=== PATIENT | female | born 1975 | race Caucasian/White ===

== ENCOUNTER → 2016-09-03 | Outpatient (CLI) | payer OTHER ==
--- NOTE | 2016-09-03 09:53 | REP ---
RIGHT UPPER QUADRANT ULTRASOUND: Real-time sonographic evaluation of the right upper quadrant performed and compared to a prior study of 07/29/2014. Once again, there is 4 mm polyp in the gallbladder without gallstones or gallbladder wall thickening. There is no free fluid. There is no intrahepatic or extrahepatic biliary dilatation, common bile duct measuring 6 mm in diameter. The liver again demonstrates a hyperechoic nodule in the right lobe, which is unchanged measuring 2.7 x 3.3 x 2.3 cm. The pancreas is homogeneous and appears grossly unremarkable. Right kidney demonstrates no hydronephrosis or nephrolithiasis with normal size at 10.6 cm in length. IMPRESSION: Stable exam as above. Signed by Elder Lin MD 09/03/2016 01:23 P
== END ==
LOC: M RAD 07:44
PROVIDERS: ATTEND Family Medicine
DX: Q44.5 Other congenital malformations of bile ducts (principal); K76.89 Other specified diseases of liver

== ENCOUNTER → 2016-09-29 | Outpatient (CLI) | payer OTHER ==
[2016-09-29 10:01] LABS: BASO % 0.8 % (0.0-1.0); EOS # 0.2 K/mm3 (0.0-0.50); EOS % 4.4 % (0.0-3.0); LYMPH # 1.3 K/mm3 (1.5-4.5); MEAN CORPUSCULAR HEMOGLOBIN 31.4 pg (27.0-33.0); MEAN CORPUSCULAR HGB CONC 34.1 g/dl (32.0-36.5); MEAN CORPUSCULAR VOLUME 92.1 fl (80.0-96.0); MONO # 0.1 K/mm3 (0.0-0.8); MONO % 3.5 % (0.0-5.0); NEUTROPHILS % 56.5 % (36.0-66.0); RED CELL DISTRIBUTION WIDTH 12.6 % (11.5-14.5); WHITE BLOOD COUNT 3.6 K/mm3 (4.0-10.0)
[2016-09-29 10:34] LABS: ALBUMIN 3.4 GM/DL (3.2-5.2); ALKALINE PHOSPHATASE 66 U/L (45-117); ALT/SGPT 15 U/L (12-78); ANION GAP 8 MEQ/L (8-16); AST/SGOT 13 U/L (15-37); BILIRUBIN,TOTAL 0.6 MG/DL (0.2-1.0); BLOOD UREA NITROGEN 12 MG/DL (7-18); CALCIUM LEVEL 8.4 MG/DL (8.5-10.1); CARBON DIOXIDE LEVEL 28 MEQ/L (21-32); CHLORIDE LEVEL 106 MEQ/L (98-107); CHOLESTEROL LEVEL 163 MG/DL (<200); CREATININE FOR GFR 0.73 MG/DL (0.55-1.02); FREE T4 1.02 NG/DL (0.76-1.46); GLOMERULAR FILTRATION RATE > 60.0 (>60); GLUCOSE, FASTING 92 MG/DL (70-105); SODIUM LEVEL 142 MEQ/L (136-145); TOTAL PROTEIN 6.5 GM/DL (6.4-8.2); TRIGLYCERIDES LEVEL 82 MG/DL (<150)
== END ==
LOC: M LAB 09:23
PROVIDERS: ATTEND Family Medicine
DX: Z00.00 Encounter for general adult medical examination without abnormal findings (principal)

== ENCOUNTER → 2017-04-22 | Outpatient (CLI) | payer OTHER ==
[~2017-04-22] MED LIST: GASTROGRAFIN SOLUTION 30ML (Q9963) As Ordered ONE; ISOVUE-370 76% 100ML VIAL (Q9967) As Ordered ONE
--- NOTE | 2017-04-22 15:17 | REP ---
CT ABDOMEN PELVIS WITH ORAL CONTRAST ONLY: 04/22/2017 COMPARISON: CT abdomen 08/03/2013, CT abdomen and pelvis, 11/07/2012. TECHNIQUE: Oral Gastrografin mixture 10 mL in 290 mL flavored water for two doses per our bowel contrast protocol. Coronal and sagittal reconstructions were provided. No IV contrast was provided because of inability to obtain IV access. FINDINGS: CT ABDOMEN: Lung bases are clear. Heart is not enlarged. There is no pericardial thickening or effusion. The liver, spleen, gallbladder, pancreas, adrenal glands, kidneys, and the small bowel loops are all unremarkable. Colon shows oral contrast extending to the proximal left colon. No sign of colitis, diverticulitis, stricture, or mass. No obstruction. Bowel loops fluid filled and contrast filled but without mass, wall thickening, or edema. The aorta without aneurysm. No periaortic or other retroperitoneal/mesenteric pathologic-sized lymphadenopathy. No hydronephrosis, hydroureter, ureteral stone, renal stone, or mass. Lung window review of all CT slices shows no perforation or abscess. Bone windows show lumbar and lower thoracic vertebral bodies, their posterior elements, and the visualized ribs intact. CT PELVIS: The pelvis, hips, SI joints, sacrum, symphysis pubis and pubic rami are normal. The bladder only minimally filled but without stone, mass, or wall thickening. Uterus anteverted, not enlarged. No adnexal mass or pelvic free fluid. No pelvic lymphadenopathy. Small bowel loops in the deep pelvis unremarkable to the ileocecal valve. Appendix is seen and appears grossly normal. No adnexal mass. A few small follicles evident. There is no ventral or inguinal hernia nor inguinal pathologic-sized adenopathy. No pelvic free fluid. IMPRESSION: 1. No CT evidence of mass, colitis, diverticulitis, ascites, adenopathy or other acute finding. 2. Uterus anteverted, not enlarged. Appendix unremarkable. 3. No adnexal mass, ventral or inguinal hernia, nor pathologic sized inguinal adenopathy. 4. Upper abdomen unremarkable. Signed by Karel Moncada MD 04/22/2017 05:48 P
== END ==
LOC: M RAD 11:50
PROVIDERS: ATTEND Physician Assistant
DX: R10.30 Lower abdominal pain, unspecified (principal); R19.7 Diarrhea, unspecified; K59.00 Constipation, unspecified
CPT/HCPCS: 74176; Q9963

== ENCOUNTER → 2017-05-04 | Outpatient (CLI) | payer OTHER ==
[2017-05-04 11:53] LABS: BASO % 0.8 % (0.0-1.0); EOS # 0.1 10^3/uL (0.0-0.50); EOS % 3.4 % (0.0-3.0); IMMATURE GRANULOCYTE % 0.3 % (0-0); LYMPH # 1.3 10^3/uL (1.5-4.5); LYMPH % 33.2 % (24.0-44.0); MEAN CORPUSCULAR HEMOGLOBIN 31.5 pg (27.0-33.0); MEAN CORPUSCULAR HGB CONC 33.3 g/dl (32.0-36.5); MEAN CORPUSCULAR VOLUME 94.4 fl (80.0-96.0); MONO # 0.2 10^3/uL (0.0-0.8); MONO % 5.3 % (0.0-5.0); NEUTROPHILS # 2.2 10^3/uL (1.8-7.7); PLATELET COUNT, AUTOMATED 233 10^3/uL (150-450); RED CELL DISTRIBUTION WIDTH 13.1 % (11.5-14.5); WHITE BLOOD COUNT 3.8 10^3/uL (4.0-10.0)
[2017-05-04 12:50] LABS: FREE T4 1.14 NG/DL (0.76-1.46)
== END ==
LOC: M LAB 11:17
PROVIDERS: ATTEND Physician Assistant
DX: A04.8 Other specified bacterial intestinal infections (principal); E07.89 Other specified disorders of thyroid

== ENCOUNTER → 2017-05-19 | Outpatient (CLI) | payer OTHER ==
[2017-05-19 09:11] LABS: BASO % 1.3 % (0.0-1.0); EOS # 0.1 10^3/uL (0.0-0.50); EOS % 2.8 % (0.0-3.0); IMMATURE GRANULOCYTE % 0.3 % (0-0); LYMPH # 1.1 10^3/uL (1.5-4.5); LYMPH % 34.2 % (24.0-44.0); MEAN CORPUSCULAR HEMOGLOBIN 31.5 pg (27.0-33.0); MEAN CORPUSCULAR HGB CONC 33.7 g/dl (32.0-36.5); MEAN CORPUSCULAR VOLUME 93.5 fl (80.0-96.0); MONO # 0.2 10^3/uL (0.0-0.8); MONO % 6.3 % (0.0-5.0); NEUTROPHILS # 1.8 10^3/uL (1.8-7.7); NEUTROPHILS % 55.1 % (36.0-66.0); PLATELET COUNT, AUTOMATED 227 10^3/uL (150-450); RED CELL DISTRIBUTION WIDTH 12.8 % (11.5-14.5); WHITE BLOOD COUNT 3.2 10^3/uL (4.0-10.0)
== END ==
LOC: M LAB 08:26
PROVIDERS: ATTEND Physician Assistant
DX: A04.72 Enterocolitis due to Clostridium difficile, not specified as recurrent (principal)

== ENCOUNTER → 2017-05-23 | Outpatient (REF) | payer OTHER | LOC: M SFHCLERA 20:55 | PROVIDERS: ATTEND Nurse Practitioner Family | DX: J02.9 Acute pharyngitis, unspecified (principal) ==

== ENCOUNTER → 2017-06-30 | Outpatient (REF) | payer OTHER ==
[2017-06-30 14:45] LABS: REASON FOR REVIEW COMPREHENSIVE REVIEW; SLIDE REVIEW Report; SOURCE PERIPHERAL SMEAR
[2017-07-01 09:46] LABS: HEPATITIS B SURFACE ANTIGEN NEGATIVE (NEGATIVE)
[2017-07-01 09:54] LABS: HEPATITIS B SURFACE ANTIBODY NEGATIVE (POSITIVE)
[2017-07-01 10:11] LABS: HEPATITIS C VIRUS ABY INDEX 0.1 INDEX (<0.8)
[2017-07-01 13:58] LABS: HIV 1&2 SCREEN CENTAUR NEGATIVE (NEGATIVE)
== END ==
LOC: M LAB REF 14:05
DX: D72.819 Decreased white blood cell count, unspecified (principal)

== ENCOUNTER → 2017-09-09 | Outpatient (CLI) | payer OTHER ==
[2017-09-09 10:12] LABS: BASO % 0.6 % (0.0-1.0); EOS # 0.1 10^3/uL (0.0-0.50); EOS % 3.1 % (0.0-3.0); IMMATURE GRANULOCYTE % 0.3 % (0-3.0); LYMPH # 1.1 10^3/uL (1.5-4.5); LYMPH % 34.8 % (24.0-44.0); MONO # 0.1 10^3/uL (0.0-0.8); MONO % 3.7 % (0.0-5.0); NEUTROPHILS # 1.9 10^3/uL (1.8-7.7); NEUTROPHILS % 57.5 % (36.0-66.0)
[2017-09-09 10:20] LABS: APPEARANCE, URINE CLEAR (CLEAR); BACTERIA, URINE AUTO NEGATIVE (NEGATIVE); BILIRUBIN, URINE AUTO NEGATIVE (NEGATIVE); BLOOD, URINE BLOOD 1+ (NEGATIVE); COLOR, URINE YELLOW (YELLOW); GLUCOSE, URINE (UA) AUTO NEGATIVE (NEGATIVE); KETONE, URINE AUTO NEGATIVE (NEGATIVE); LEUKOCYTE ESTERASE, URINE AUTO NEGATIVE (NEGATIVE); MUCUS, URINE SMALL (NEGATIVE); NITRITE, URINE AUTO NEGATIVE (NEGATIVE); PROTEIN, URINE AUTO NEGATIVE (NEGATIVE); RBC, URINE AUTO 1 /HPF (0-3); SPECIFIC GRAVITY URINE AUTO 1.023 (1.002-1.035); SQUAMOUS EPITHELIAL CELL UR AU 1 /HPF (0-6); UROBILINOGEN, URINE AUTO 0.2 mg/dL (0.0-2.0); WBC, URINE AUTO 0 /HPF (0-3)
[2017-09-09 10:30] LABS: ALBUMIN 3.4 GM/DL (3.2-5.2); ALBUMIN/GLOBULIN RATIO 1.03 (1.00-1.93); ALKALINE PHOSPHATASE 47 U/L (45-117); ALT/SGPT 11 U/L (12-78); ANION GAP 5 MEQ/L (8-16); AST/SGOT 10 U/L (7-37); BILIRUBIN,TOTAL 0.5 MG/DL (0.2-1.0); BLOOD UREA NITROGEN 12 MG/DL (7-18); CALCIUM LEVEL 8.3 MG/DL (8.5-10.1); CARBON DIOXIDE LEVEL 27 MEQ/L (21-32); CHLORIDE LEVEL 111 MEQ/L (98-107); CHOLESTEROL LEVEL 152 MG/DL (<200); CHOLESTEROL RISK RATIO 2.814 (<5); CREATININE FOR GFR 0.66 MG/DL (0.55-1.30); FREE T4 1.01 NG/DL (0.76-1.46); GLOMERULAR FILTRATION RATE > 60.0 (>58); GLUCOSE, FASTING 86 MG/DL (70-100); HDL CHOLESTEROL 54 MG/DL (>40); NON-HDL-C 98 MG/DL; POTASSIUM SERUM 4.3 MEQ/L (3.5-5.1); SODIUM LEVEL 143 MEQ/L (136-145); THYROID STIMULATING HORMONE 0.735 uIU/ML (0.358-3.740); TOTAL PROTEIN 6.7 GM/DL (6.4-8.2); TRIGLYCERIDES LEVEL 60 MG/DL (<150)
[2017-09-09 10:54] LABS: RED BLOOD COUNT 4.18 10^6/uL (4.00-5.40); WHITE BLOOD COUNT 3.2 10^3/uL (4.0-10.0)
[2017-09-09 10:55] LABS: HEMATOCRIT 39.1 % (36.0-47.0); HEMOGLOBIN 13.2 g/dl (12.0-15.5); MEAN CORPUSCULAR HEMOGLOBIN 31.6 pg (27.0-33.0); MEAN CORPUSCULAR HGB CONC 33.8 g/dl (32.0-36.5); MEAN CORPUSCULAR VOLUME 93.5 fl (80.0-96.0); PLATELET COUNT, AUTOMATED 212 10^3/uL (150-450); RED CELL DISTRIBUTION WIDTH 12.7 % (11.5-14.5)
== END ==
LOC: M LAB 09:14
DX: D72.819 Decreased white blood cell count, unspecified (principal); R00.2 Palpitations; R10.30 Lower abdominal pain, unspecified; E78.5 Hyperlipidemia, unspecified
CPT/HCPCS: 84443

== ENCOUNTER → 2018-08-27 | Outpatient (REF) | payer OTHER ==
[~2018-08-27] MED LIST changes: +EXCETAB80 PO; -GASTROGRAFIN SOLUTION 30ML (Q9963) As Ordered ONE; +IBUP-1022 PO; +IBUP80TA PO; -ISOVUE-370 76% 100ML VIAL (Q9967) As Ordered ONE; +LOW-1TAB2; +MUCI30TA5 PO; +OSEL75CA PO; +[UNRECOGNIZED DRUG - CODE] PO
== END ==
LOC: M SFHCLERA 11:51
PROVIDERS: ATTEND Nurse Practitioner Family
DX: Z20.828 Contact with and (suspected) exposure to other viral communicable diseases (principal)

== ENCOUNTER 2018-08-28 15:09 | Emergency (ER) | payer OTHER ==
[~2018-08-28] VITALS: Ht 157.5 cm; Wt 65.8 kg
[2018-08-28] MEDS ORDERED: LOW-1TAB2 (15:19)
[2018-08-28] MEDS ORDERED: MUCI30TA5 PO (15:19)
[2018-08-28] MEDS ORDERED: [UNRECOGNIZED DRUG - CODE] PO (15:19)
[2018-08-28] MEDS ORDERED: IBUP80TA PO (15:19)
[2018-08-28] MEDS ORDERED: EXCETAB80 PO (15:19)
[2018-08-28 16:05] LABS: BASO % 0.9 % (0.0-1.0); EOS # 0.1 10^3/uL (0.0-0.50); EOS % 2.8 % (0.0-3.0); HEMATOCRIT 42.7 % (36.0-47.0); HEMOGLOBIN 14.4 g/dl (12.0-15.5); LYMPH # 0.8 10^3/uL (1.5-4.5); LYMPH % 24.6 % (24.0-44.0); MEAN CORPUSCULAR HEMOGLOBIN 31.8 pg (27.0-33.0); MEAN CORPUSCULAR HGB CONC 33.7 g/dl (32.0-36.5); MEAN CORPUSCULAR VOLUME 94.3 fl (80.0-96.0); MONO # 0.3 10^3/uL (0.0-0.8); MONO % 10.7 % (0.0-5.0); NEUTROPHILS # 1.9 10^3/uL (1.8-7.7); PLATELET COUNT, AUTOMATED 176 10^3/uL (150-450); RED BLOOD COUNT 4.53 10^6/uL (4.00-5.40); WHITE BLOOD COUNT 3.2 10^3/uL (4.0-10.0)
[2018-08-28 16:30] LABS: MONO REFLEX EBV COMP NEGATIVE (NEGATIVE)
[2018-08-28 16:37] LABS: INFLUENZA A AMPLIFICATION POSITIVE (NEGATIVE); INFLUENZA B AMPLIFICATION NEGATIVE (NEGATIVE)
[2018-08-28] MEDS ORDERED: IBUP-1022 PO (17:07)
[2018-08-28] MEDS ORDERED: OSEL75CA PO (17:07)
[2018-08-28 17:12] VITALS: BP 145/90
[2018-08-31 00:08] LABS: EBV VIRAL CAPSID AG IgM <36.0 U/mL (0.0-35.9)
== END 2018-08-28 17:14 | disposition home or self-care (01) ==
LOC: M ED 15:09
DX: J09.X2 Influenza due to identified novel influenza A virus with other respiratory manifestations (principal); Z79.3 Long term (current) use of hormonal contraceptives; Z88.0 Allergy status to penicillin; Z88.2 Allergy status to sulfonamides; Z88.8 Allergy status to other drugs, medicaments and biological substances

== ENCOUNTER → 2018-09-16 | Outpatient (CLI) | payer OTHER ==
[2018-09-16 10:45] LABS: APPEARANCE, URINE CLEAR (CLEAR); BACTERIA, URINE AUTO NEGATIVE (NEGATIVE); BILIRUBIN, URINE AUTO NEGATIVE (NEGATIVE); BLOOD, URINE BLOOD 3+ (NEGATIVE); COLOR, URINE STRAW (YELLOW); GLUCOSE, URINE (UA) AUTO NEGATIVE (NEGATIVE); KETONE, URINE AUTO NEGATIVE (NEGATIVE); LEUKOCYTE ESTERASE, URINE AUTO NEGATIVE (NEGATIVE); MUCUS, URINE SMALL (NEGATIVE); NITRITE, URINE AUTO NEGATIVE (NEGATIVE); PROTEIN, URINE AUTO NEGATIVE (NEGATIVE); RBC, URINE AUTO 26 /HPF (0-3); SPECIFIC GRAVITY URINE AUTO 1.009 (1.002-1.035); SQUAMOUS EPITHELIAL CELL UR AU 0 /HPF (0-6); UROBILINOGEN, URINE AUTO 0.2 mg/dL (0.0-2.0); WBC, URINE AUTO 0 /HPF (0-3)
[2018-09-16 10:52] LABS: BASO % 0.7 % (0.0-1.0); EOS # 0.2 10^3/uL (0.0-0.50); EOS % 3.9 % (0.0-3.0); HEMATOCRIT 43.6 % (36.0-47.0); HEMOGLOBIN 14.2 g/dl (12.0-15.5); LYMPH # 1.2 10^3/uL (1.5-4.5); LYMPH % 22.2 % (24.0-44.0); MEAN CORPUSCULAR HEMOGLOBIN 30.9 pg (27.0-33.0); MEAN CORPUSCULAR HGB CONC 32.6 g/dl (32.0-36.5); MEAN CORPUSCULAR VOLUME 94.8 fl (80.0-96.0); MONO # 0.2 10^3/uL (0.0-0.8); MONO % 3.4 % (0.0-5.0); NEUTROPHILS # 3.9 10^3/uL (1.8-7.7); NEUTROPHILS % 69.6 % (36.0-66.0); PLATELET COUNT, AUTOMATED 274 10^3/uL (150-450); WHITE BLOOD COUNT 5.6 10^3/uL (4.0-10.0)
[2018-09-16 13:34] LABS: BLOOD UREA NITROGEN 11 MG/DL (7-18); CALCIUM LEVEL 8.7 MG/DL (8.5-10.1); CARBON DIOXIDE LEVEL 27 MEQ/L (21-32); CHLORIDE LEVEL 109 MEQ/L (98-107); CREATININE FOR GFR 0.67 MG/DL (0.55-1.30); GLOMERULAR FILTRATION RATE > 60.0 (>58); GLUCOSE, FASTING 85 MG/DL (70-100); POTASSIUM SERUM 4.4 MEQ/L (3.5-5.1); SODIUM LEVEL 142 MEQ/L (136-145)
[2018-09-16 13:35] LABS: ALT/SGPT 16 U/L (12-78); BILIRUBIN,TOTAL 0.6 MG/DL (0.2-1.0); CHOLESTEROL LEVEL 198 MG/DL (<200); CHOLESTEROL RISK RATIO 3.046 (<5); HDL CHOLESTEROL 65 MG/DL (>40); NON-HDL-C 133 MG/DL; TRIGLYCERIDES LEVEL 52 MG/DL (<150)
[2018-09-16 13:36] LABS: LDL CHOLESTEROL 122.6 MG/DL (<100)
[2018-09-16 13:37] LABS: ALBUMIN 3.5 GM/DL (3.2-5.2); FREE T4 1.08 NG/DL (0.76-1.46); THYROID STIMULATING HORMONE 0.796 uIU/ML (0.358-3.740); TOTAL PROTEIN 6.7 GM/DL (6.4-8.2)
== END ==
LOC: M LAB 09:39
PROVIDERS: ATTEND Family Medicine
DX: D72.819 Decreased white blood cell count, unspecified (principal); R00.2 Palpitations; E78.5 Hyperlipidemia, unspecified

== ENCOUNTER → 2018-09-29 | Outpatient (CLI) | payer OTHER ==
--- NOTE | 2018-09-29 11:50 | REP ---
Cervical spine seven views: There are no comparisons. Vertebral body heights and alignment are normal. There is mild C5-6 degenerative disc disease. The disc spaces are otherwise unremarkable. The facets are normally aligned. The prevertebral soft tissues are unremarkable. There is no listhesis on flexion or extension. The odontoid view is unremarkable. There is no bony foraminal encroachment. Impression: Mild C5-6 degenerative disc disease. Electronically Signed by Elder Johnson MD 09/29/2018 11:41 A
--- NOTE | 2018-09-29 11:51 | REP ---
Thoracic spine three views: Mineralization is normal. Vertebral body heights, interspacing alignment are normal. The pedicles are unremarkable. Impression: Negative thoracic spine. Electronically Signed by Elder Johnson MD 09/29/2018 11:42 A
--- NOTE | 2018-09-29 11:56 | REP ---
Lumbar spine five views: There are no comparisons. Vertebral body heights, interspacing alignment are normal. There is no spondylolysis or spondylolisthesis. There is mild joint space narrowing of the L5 S1 facet articulations. The facet articulations are otherwise unremarkable. Pedicles are unremarkable. Sacroiliac articulations are unremarkable. Impression: Negative lumbar spine except for mild joint space narrowing of the L5 S1 facets. Electronically Signed by Elder Johnson MD 09/29/2018 11:47 A
--- NOTE | 2018-09-29 11:56 | REP ---
Sacrum and coccyx three views: The sacroiliac articulations are not fused. There is no cortical eburnation. The sacroiliac articulations are unremarkable. The sacral ala and foramen are unremarkable. The The coccyx is unremarkable. Impression: Negative plain film study of the sacrum and coccyx. If symptoms persist or worsen, consider follow-up MRI or CT. Electronically Signed by Elder Johnson MD 09/29/2018 11:48 A
== END ==
LOC: M RAD 10:34
PROVIDERS: ATTEND Family Medicine
DX: M50.322 Other cervical disc degeneration at C5-C6 level (principal); M47.817 Spondylosis without myelopathy or radiculopathy, lumbosacral region

== ENCOUNTER → 2018-11-03 | Outpatient (CLI) | payer OTHER ==
--- NOTE | 2018-11-03 10:02 | REP ---
Clinical: Hepatic hemangioma. Technique: Real time samuels scale ultrasound examination using curved array transducer. Comparison: 07/29/2014 Findings: The liver is heterogeneous in echotexture and includes 1.2 cm simple cyst in the right lobe and 2.6 cm stable echogenic area in the inferior portion of the right lobe which likely represents hemangioma and remain stable with prior ultrasound dated 07/29/[address] dated 11/07/2012. Pancreas is normal in appearance and echotexture. The gallbladder is unremarkable and without gallstones, wall thickening, or pericholecystic fluid. Previously noted polyp is not visualized on current examination. No biliary ductal dilatation is appreciated and the common bile duct measures 3.9 mm diameter. The right kidney is normal in reniform shape without hydronephrosis and measures 10.0 x 5.3 x 4.2 cm. Visualized abdominal aorta normal. No ascites. Impression: 1. Stable hepatic hemangioma and simple small hepatic cyst 2. Otherwise normal examination. Electronically Signed by Chaim Bowman MD 11/03/2018 09:54 A
== END ==
LOC: M RAD 09:02
PROVIDERS: ATTEND Family Medicine
DX: Q44.6 Cystic disease of liver (principal); K76.89 Other specified diseases of liver

== ENCOUNTER → 2019-03-03 | Outpatient (CLI) | payer OTHER ==
--- NOTE | 2019-03-03 11:07 | REPVR ---
PROCEDURE INFORMATION: Exam: MR Cervical Spine Without Contrast Exam date and time: 03/03/2019 9:45 AM Clinical history: 43 years old, female; Pain; Cervicalgia; Additional info: Cervalgia TECHNIQUE: Imaging protocol: Multiplanar magnetic resonance images of the cervical spine without contrast. COMPARISON: CR Spine, Cervical 09/29/2018 10:45 AM FINDINGS: Vertebral body heights are intact. Alignment is maintained. The cervicomedullary junction appears unremarkable. The spinal cord appears normal in signal. There are varying degrees of disc desiccation indicating intervertebral disc degeneration. C2-3: No significant disc displacement. C3-4: Small bulge without significant neural foraminal narrowing or spinal stenosis. C4-5: Small bulge without significant neural foraminal narrowing or spinal stenosis. C5-6: Small bulge combined with uncinate hypertrophy to lead to very mild right and mild left neural foraminal narrowing without significant spinal stenosis. C6-7: Disc osteophyte complex combining with uncinate hypertrophy to lead to very mild right and mild left neural foraminal narrowing without significant spinal stenosis. C7-T1: Minimal bulge without significant neural foraminal narrowing or spinal stenosis. If surgery is considered, recommend level confirmation. IMPRESSION: Multilevel disc desiccation indicating intervertebral disk degeneration with disc displacements as described. Electronically signed by: Gregory Hong On 03/03/2019 11:07:39 AM
--- NOTE | 2019-03-03 11:11 | REPVR ---
PROCEDURE INFORMATION: Exam: MR Lumbar Spine Without Contrast. Exam date and time: 03/03/2019 9:45 AM Clinical history: 43 years old, female; Low back pain TECHNIQUE: Imaging protocol: Multiplanar magnetic resonance images of the lumbar spine without intravenous contrast. COMPARISON: CR Spine. Lumbosacral, complete 09/29/2018 10:45 AM FINDINGS: Vertebral body heights are intact. Alignment is maintained. No pars defect is identified. The conus is unremarkable in appearance, with its tip at the L1 level. There are mild degrees of disc desiccation indicating intervertebral disc degeneration. A partially visualized high T2 signal renal lesion measuring at least 8 mm may represent a cyst. The visualized abdominal structures appear otherwise unremarkable. L1-2: No significant disc displacement. L2-3: No significant disc displacement. L3-4: No significant disc displacement. L4-5: Small bulge combining with facet arthrosis to lead to mild bilateral neural foraminal narrowing with very mild left lateral recess narrowing, without significant central canal stenosis. There is small fluid in the facet joints. L5-S1: Small bulge combining with facet arthrosis to lead to very mild right and mild left neural foraminal narrowing without significant spinal stenosis. If surgery is considered, recommend level confirmation. IMPRESSION: 1. Mild multilevel disc desiccation indicating intervertebral disk degeneration with small disc displacements as described. 2. Partially visualized left renal lesion which may represent a cyst. Consider dedicated imaging. Electronically signed by: Gregory Hong On 03/03/2019 11:11:13 AM
== END ==
LOC: M RAD 08:39
PROVIDERS: ATTEND Physician Assistant
DX: M54.5 Low back pain (principal)

== ENCOUNTER → 2019-04-04 | Outpatient (CLI) | payer OTHER ==
--- NOTE | 2019-04-04 18:19 | REP ---
Clinical: Renal cyst. Technique: Real time samuels scale ultrasound examination using curved array transducer. Findings: Right kidney is normal in reniform shape and echogenicity without hydronephrosis, nephrolithiasis, cystic or renal mass lesion and measures 10.0 x 5.9 x 4.6 cm. Left kidney is normal in reniform shape and echogenicity without hydronephrosis, nephrolithiasis, or renal mass lesion and measures 11.8 x 3.9 x 4.9 cm. 5.4 x 5.1 x 5.4 mid pole simple cyst identified. Impression: Subcentimeter left renal cyst. Electronically Signed by Chaim Bowman MD 04/04/2019 06:11 P
== END ==
LOC: M RAD 16:33
PROVIDERS: ATTEND Family Medicine
DX: N28.1 Cyst of kidney, acquired (principal)

== ENCOUNTER → 2019-04-23 | Outpatient (REF) | payer OTHER ==
[2019-04-23 17:43] LABS: APPEARANCE, URINE CLEAR (CLEAR); BACTERIA, URINE AUTO NEGATIVE (NEGATIVE); BILIRUBIN, URINE AUTO NEGATIVE (NEGATIVE); BLOOD, URINE BLOOD 1+ (NEGATIVE); COLOR, URINE YELLOW (YELLOW); GLUCOSE, URINE (UA) AUTO NEGATIVE (NEGATIVE); KETONE, URINE AUTO NEGATIVE (NEGATIVE); LEUKOCYTE ESTERASE, URINE AUTO NEGATIVE (NEGATIVE); NITRITE, URINE AUTO NEGATIVE (NEGATIVE); PROTEIN, URINE AUTO NEGATIVE (NEGATIVE); RBC, URINE AUTO 1 /HPF (0-3); SPECIFIC GRAVITY URINE AUTO 1.023 (1.002-1.035); SQUAMOUS EPITHELIAL CELL UR AU 1 /HPF (0-6); UROBILINOGEN, URINE AUTO 0.2 mg/dL (0.0-2.0); WBC, URINE AUTO 0 /HPF (0-3)
== END ==
LOC: M SMT 16:51
PROVIDERS: ATTEND Nurse Practitioner Women's Health
DX: R31.29 Other microscopic hematuria (principal)

== ENCOUNTER → 2019-05-04 | Outpatient (REF) | payer OTHER | LOC: M SFHCLERA 19:49 | PROVIDERS: ATTEND Physician Assistant | DX: J03.90 Acute tonsillitis, unspecified (principal) ==

== ENCOUNTER → 2019-11-03 | Outpatient (CLI) | payer OTHER ==
[2019-11-03 10:08] LABS: EOS % 7.3 % (0.0-3.0); HEMATOCRIT 41.6 % (36.0-47.0); LYMPH # 1.2 10^3/uL (1.5-5.0); LYMPH % 28.1 % (24.0-44.0); MEAN CORPUSCULAR HGB CONC 33.7 g/dl (32.0-36.5); MONO % 4.4 % (0.0-5.0); NEUTROPHILS # 2.4 10^3/uL (1.5-8.5); PLATELET COUNT, AUTOMATED 249 10^3/uL (150-450); RED BLOOD COUNT 4.38 10^6/uL (4.00-5.40); WHITE BLOOD COUNT 4.1 10^3/uL (4.0-10.0)
[2019-11-03 10:09] LABS: EOS # 0.3 10^3/uL (0.0-0.5); MONO # 0.2 10^3/uL (0.0-0.8)
[2019-11-03 10:16] LABS: APPEARANCE, URINE CLEAR (CLEAR); BACTERIA, URINE AUTO NEGATIVE (NEGATIVE); BILIRUBIN, URINE AUTO NEGATIVE (NEGATIVE); BLOOD, URINE BLOOD 2+ (NEGATIVE); COLOR, URINE YELLOW (YELLOW); GLUCOSE, URINE (UA) AUTO NEGATIVE (NEGATIVE); KETONE, URINE AUTO NEGATIVE (NEGATIVE); LEUKOCYTE ESTERASE, URINE AUTO NEGATIVE (NEGATIVE); MUCUS, URINE SMALL (NEGATIVE); NITRITE, URINE AUTO NEGATIVE (NEGATIVE); PROTEIN, URINE AUTO NEGATIVE (NEGATIVE); RBC, URINE AUTO 5 /HPF (0-3); SPECIFIC GRAVITY URINE AUTO 1.018 (1.002-1.035); SQUAMOUS EPITHELIAL CELL UR AU 1 /HPF (0-6); UROBILINOGEN, URINE AUTO 0.2 mg/dL (0.0-2.0); WBC, URINE AUTO 1 /HPF (0-3)
[2019-11-03 10:44] LABS: ALBUMIN 3.3 GM/DL (3.2-5.2); ALT/SGPT 18 U/L (12-78); BILIRUBIN,TOTAL 0.5 MG/DL (0.2-1.0); BLOOD UREA NITROGEN 11 MG/DL (7-18); CALCIUM LEVEL 8.5 MG/DL (8.5-10.1); CARBON DIOXIDE LEVEL 27 MEQ/L (21-32); CHLORIDE LEVEL 109 MEQ/L (98-107); CHOLESTEROL LEVEL 177 MG/DL (<200); FREE T4 0.99 NG/DL (0.76-1.46); GLOMERULAR FILTRATION RATE > 60.0 (>58); GLUCOSE, FASTING 86 MG/DL (70-100); HDL CHOLESTEROL 59 MG/DL (>40); LDL CHOLESTEROL 104 MG/DL (<100); NON-HDL-C 118 MG/DL; POTASSIUM SERUM 4.5 MEQ/L (3.5-5.1); SODIUM LEVEL 142 MEQ/L (136-145); THYROID STIMULATING HORMONE 0.961 uIU/ML (0.358-3.740); TOTAL PROTEIN 6.4 GM/DL (6.4-8.2); TRIGLYCERIDES LEVEL 72 MG/DL (<150)
== END ==
LOC: M LAB 09:01
PROVIDERS: ATTEND Family Medicine
DX: R00.2 Palpitations (principal); R10.30 Lower abdominal pain, unspecified; E78.5 Hyperlipidemia, unspecified; Q44.6 Cystic disease of liver

== ENCOUNTER → 2019-11-27 | Outpatient (CLI) | payer OTHER ==
--- NOTE | 2019-11-27 10:07 | REP ---
Clinical: Renal cyst. Technique: Real time samuels scale and color evaluation using curved array transducer. Comparison: 04/04/2019. Findings: Right kidney is normal in contour, size, echogenicity, and reniform shape without hydronephrosis, nephrolithiasis, cystic or renal mass lesion. Right kidney measures 10.9 x 6.2 x 3.9 cm. Left kidney is normal in contour, size, echogenicity, and reniform shape with septated benign appearing 8 mm mid pole cyst again noted. No hydronephrosis, nephrolithiasis or renal mass lesion. Left kidney measures 8.7 x 4.5 x 4.4 cm. Impression: 1. Small septated benign appearing 8 mm left renal cyst. 2. Otherwise normal examination
--- NOTE | 2019-11-27 17:02 | REP ---
Clinical: Cystic disease of the liver. Technique: Real time samuels scale ultrasound examination using curved array transducer. Findings: The liver is normal in size, contour, and overall parenchymal echo texture. Stable complex cyst in the left lobe measuring 1.3 x 1.3 x 1.0 cm. 2.7 x 2.6 x 2.2 cm hyperdense lesion in the medial left lobe likely representing hemangiomas again noted. Pancreas is unremarkable. The gallbladder demonstrates few small echogenic foci without shadowing which may represent small polyps up to 4 mm. No gallstones, wall thickening, or pericholecystic fluid is appreciated. No biliary ductal dilatation is appreciated and the common bile duct measures 4.7 mm diameter. The right kidney is normal in reniform shape without hydronephrosis and measures 10.9 x 6.2 x 3.9 cm. No ascites. Impression: 1. Complex hepatic cyst and suspected hemangioma again noted and stable. No further hepatic abnormalities are identified. 2. Possible small benign appearing gallbladder polyp less than 5 mm.
== END ==
LOC: M PLAIMG 09:06
PROVIDERS: ATTEND Family Medicine
DX: N28.1 Cyst of kidney, acquired (principal)

== ENCOUNTER 2019-12-19 14:34 | Emergency (ER) | payer OTHER ==
[~2019-12-19] VITALS: Ht 157.5 cm; Wt 68.7 kg
[2019-12-19 15:38] LABS: BASO # 0.1 10^3/uL (0.0-0.2); BASO % 1.1 % (0.0-1.0); EOS # 0.2 10^3/uL (0.0-0.5); EOS % 5.2 % (0.0-3.0); HEMATOCRIT 41.1 % (36.0-47.0); HEMOGLOBIN 13.8 g/dl (12.0-15.5); LYMPH # 1.5 10^3/uL (1.5-5.0); LYMPH % 33.4 % (24.0-44.0); MEAN CORPUSCULAR HEMOGLOBIN 31.4 pg (27.0-33.0); MEAN CORPUSCULAR HGB CONC 33.6 g/dl (32.0-36.5); MEAN CORPUSCULAR VOLUME 93.4 fl (80.0-96.0); MONO # 0.2 10^3/uL (0.0-0.8); MONO % 5.2 % (0.0-5.0); NEUTROPHILS # 2.5 10^3/uL (1.5-8.5); NEUTROPHILS % 54.9 % (36.0-66.0); PLATELET COUNT, AUTOMATED 240 10^3/uL (150-450); WHITE BLOOD COUNT 4.5 10^3/uL (4.0-10.0)
[2019-12-19 16:14] LABS: BLOOD UREA NITROGEN 15 MG/DL (7-18); CALCIUM LEVEL 8.7 MG/DL (8.5-10.1); CARBON DIOXIDE LEVEL 27 MEQ/L (21-32); CHLORIDE LEVEL 110 MEQ/L (98-107); CREATININE FOR GFR 0.75 MG/DL (0.55-1.30); FREE THYROXINE INDEX 3.1 % (1.3-4.8); GLOMERULAR FILTRATION RATE > 60.0 (>58); GLUCOSE, FASTING 87 MG/DL (70-100); MAGNESIUM LEVEL 2.2 MG/DL (1.8-2.4); POTASSIUM SERUM 4.2 MEQ/L (3.5-5.1); SODIUM LEVEL 142 MEQ/L (136-145); T UPTAKE 28 % (30-39); THYROID STIMULATING HORMONE 0.834 uIU/ML (0.358-3.740); THYROXINE (T4) 11.2 UG/DL (4.5-12.0)
[2019-12-19] MEDS ORDERED: holter monitor (16:54)
[2019-12-19] MEDS ORDERED: holter (16:54)
[2019-12-19 17:49] VITALS: BP 124/84
--- NOTE | 2019-12-20 00:36 | ECGEPIP ---
[facility] - ED Test Date: 2019-12-19 Pat Name: MARCUS BANEGAS Department: Room: - Gender: Female Qc Manager: darío : 1975 Requested By: Rama Duran Order Number: [id number] Reading MD: Shmuel Contreras Measurements Intervals [place] Rate: 84 P: 51 SD: 137 QRS: 60 QRSD: 82 T: 32 QT: 331 QTc: 393 Interpretive Statements SINUS RHYTHM Nonspecific ST-T wave abnormalities Baseline artifact Comparison tracing not on file Electronically Signed on 12-20-2019 0:36:04 EDT by Shmuel Contreras
--- NOTE | 2019-12-20 01:32 | REP ---
CHEST PORTABLE: REASON: Cardiac symptoms. FINDINGS: The technique utilized in obtaining the radiograph has magnified the cardiac silhouette and accentuated the interstitial markings. The superior mediastinal structures are midline. The cardiac silhouette is unremarkable in size, shape, and position. The diaphragmatic surfaces of the lungs are regular, and the costophrenic angles are clear. The pulmonary carlson are clear. The imaged osseous structures are intact. IMPRESSION: There is no acute cardiopulmonary disease. Electronically Signed by Josué Hubbard DO 12/20/2019 11:25 A
== END 2019-12-19 18:02 | disposition home or self-care (01) ==
LOC: M ED 14:34
DX: R00.2 Palpitations (principal); Z88.0 Allergy status to penicillin; Z88.2 Allergy status to sulfonamides; Z88.8 Allergy status to other drugs, medicaments and biological substances

== ENCOUNTER → 2019-12-20 | Outpatient (CLI) | payer OTHER ==
[~2019-12-20] MED LIST changes: +holter; +holter monitor
--- NOTE | 2019-12-22 09:34 | HOLTMON ---
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 AVG HR 84, MAX 127 MIN 51 FREQUENT PVCS NOTED MULTIPLE DIARY ENTIRES WITH COMPLAINTS OF CP SOB OR PALPITATIONS. MANY DAIRY ENTIES WITHOUT SIGNIFICANT FINDINGS. DESPITE FREQUENT PVCS, MANY OF DIARY SELECTED STRIPS WERE NOTED FOR ABSENSE OF SAME. STRIPS ON PG P27 AND 30 OF SXS DID CORRELATE WITH PVCS SOME EPISODES APPEARED RELATED TO BE SINUS ARRYTHMIA PG 20,26 32 SOME PALPITATIPNS SOB OR CP WITH SINUS TACHY. NO SIGNIFICANT ST DEVIATIONS OR QT ISSUES Electronically Signed on 12-22-2019 9:34:33 EDT by Lara Suárez
== END ==
LOC: M EKG 10:01
PROVIDERS: ATTEND Emergency Medicine
DX: R00.2 Palpitations (principal)

== ENCOUNTER 2020-01-10 12:30 | Outpatient (RCR) | payer OTHER | END 2020-01-11 | LOC: M PT 12:30 | PROVIDERS: ATTEND Family Medicine | DX: M54.2 Cervicalgia (principal); M54.5 Low back pain ==

== ENCOUNTER 2020-01-15 12:30 | Outpatient (RCR) | payer OTHER | END 2020-02-11 | LOC: M PT 12:30 | PROVIDERS: ATTEND Family Medicine | DX: M54.2 Cervicalgia (principal); M54.5 Low back pain ==

== ENCOUNTER → 2020-06-28 | Outpatient (CLI) | payer OTHER ==
[~2020-06-28] MED LIST changes: +SUMA100T2 PO; +ZYRTTAB8 PO
== END ==
LOC: M LABSMTC 09:05
PROVIDERS: ATTEND Anesthesiology
DX: Z01.812 Encounter for preprocedural laboratory examination (principal); Z20.822 Contact with and (suspected) exposure to COVID-19

== ENCOUNTER 2020-07-03 11:49 | Day surgery (SDC) | payer OTHER ==
[~2020-07-03] VITALS: Ht 157.5 cm; Wt 70.9 kg
[~2020-07-03 11:49] MED LIST changes: +ACETAMINOPHEN 1000MG 100ML IV BTL (OFIRMEV) (J0131 PER 10MG) As Ordered ONE; +KETOROLAC 60MG 2ML VIAL As Ordered ONE; +LIDOCAINE 2% 100MG/5ML SDV (FOR ANES.) As Ordered ONE; +LR 1,000 ML IV ONE; +MIDAZOLAM INJ 2MG/2ML VIAL (J2250 PER 1MG) As Ordered ONE; +ONDANSETRON 4MG/2ML VIAL As Ordered ONE; +dexameTHASONE 4 MG/ML 1ML VIAL (J1100 PER 1MG) As Ordered ONE; +fentaNYL 100 MCG/2 ML INJECTION (J3010) As Ordered ONE; +propofoL 200 MG/20 ML VIAL As Ordered ONE
--- OUTSIDE RECORDS SUMMARY | 2020-07-03 11:53 | CCD | Continuity of Care Document ---
Author Author Lizbeth ONTIVEROS Organization Unknown Address [address] [place] [address] Phone [phone] Care Team Providers Care Consumer Education Specialist Name Role Phone Ramirez Alcazar MD AUT [phone] Problems Active Problems Provider Date Gynecologic examination Rajni Chilel WHNP Onset: 01/13/20 12 Increased frequency of urination Rajni Chilel WHNP Onset: 01/13/2012 Headache Rajni Chilel WHNP Onset: 01/13/2012 High risk sexual behavior Rajni Chilel WHNP Onset: 2011 Contraception care management Rajni Chilel WHNP Onset: Dysuria Rajni Chilel WHNP Onset: 02/01/2012 Social History Type Date Description Comments Sex Unknown Tobacco Use Start: Unknown Quit On 02/11/06 ETOH Use Denies alcohol use Recreational Drug Use Denies Drug Use Tobacco Use Start: Unknown End: Unknown Patient is a former smoker Smoking Status Reviewed: 06/11/20 Patient is a former smoker Seat Belt/Car Seat always uses seat belt Allergies, Adverse Reactions, Alerts Active Allergies Reaction Severity Comments Date PCN 02/16/2006 Ceclor 02/16/2006 Sulfa 02/16/2006 Medications Active Medications SIG Qnty Indications Ordering Provide r Date Valtrex 1gm Tablets 1 by mouth daily x 7 days 7tabs Aubree Ontiveros MD 05/20/2015 Low-Ogestrel 0.3-30mg-mcg Tablets Take 1 Tablet By Mouth Daily 84tabs Rajni Chilel WHNP 08/18 Immunizations Description No Information Available Vital Signs Date Vital Result Comment 06/11/2020 11:07am BP Systolic 126 mmHg BP Diastolic 88 mmHg Height 62 inches 5'2" Weight 157.00 lb BMI (Body Mass Index) 28.7 kg/m2 BSA (Body Surface Area) 1.72 m2 05/09/2019 10:48am BP Systolic 138 mmHg BP Diastolic 92 mmHg Height 62 inches 5'2" Weight 149.00 lb BMI (Body Mass Index) 27.2 kg/m2 BSA (Body Surface Area) 1.69 m2 Results Description No Information Available Procedures Date Code Description Status 03/26/2017 [id number] Mammogram Completed Medical Devices Description No Information Available Encounters Description No Information Available Assessments Description No Information Available Plan of Treatment Future Appointment(s):* 06/12/2021 11:15 am - Aubree Ontiveros MD at [facility] genetic technologist Functional Status Description No Information Available Mental Status Description No Information Available Referrals Description No Information Available
--- OUTSIDE RECORDS SUMMARY | 2020-07-03 11:53 | CCD ---
Author Author [facility] Organization [facility] Address Unknown Phone Unavailable Care Team Providers Care Supervisor Waterproofing Name Role Phone Norma Gold Unavailable PROBLEMS Type Condition ICD9-CM Code [id number] Code Onset Dates Condition S tatus SNOMED Code Notes Problem Lumbago 724.2 Active 061227369 Problem Renal cyst, left Q61.00 Active 82341372 Problem Hematuria - Gross 599.71 Active 813173994 ALLERGIES Allergen (clinical drug ingredient) Drug/Non Drug Allergy do cumented on EMR Reaction Allergy Type Onset Date Status Sulfa (for allergy use only) Anaphylaxis Drug Allergy Active Penicillin (For Allergies Use Only) Hives Drug Allerg y Active environmental runny nose Drug Allergy Active PredniSONE Hives Drug Allergy Active ceclor Hives Drug Allergy Active ENCOUNTERS from 1975 to 2020-05-13 Encounter Location Date Provider Diagnosis 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 5-10 years REASON FOR REFERRAL No Information VITAL SIGNS Weight 158 lbs Apr, Height 63 in Apr, BMI 27.99 kg/m2 Apr, Blood pressure systolic 134 mm Hg Apr, Blood pressure diastolic 84 mm Hg Apr, MEDICATIONS Medication SIG (Take, Route, Frequency, Duration) Notes Start Da te End Date Status Excedrin Migraine 250-250-65 MG 2 tablets Orally Once a day for 30 da y(s) Active Vitamin B Complex Active Hydroquinone 4 % as directed Externally Apply full face twice daily for 3 full months, use sunscreen for 90 days Apr, Active Lo LoEstrin 1/10 1mg/10mcg Active Imitrex 25 MG 1 tablet as needed Orally Twice a day Active Levocetirizine Dihydrochloride 5 MG 1 tablet in the ev ening Orally Once a day for 30 day(s) Apr, Active Elidel 1 % 1 application Externally Twice a day for 30 days Apr, Active Zyrtec Allergy 10 MG 1 tablet Orally Once a day Active PROCEDURES No Information RESULTS No Results REASON FOR VISIT Dark spots on face and moles MEDICAL (GENERAL) HISTORY Type Description Date Medical History HTN Surgical History benign lump removal of left breast 1991 Surgical History D&C 1993 Goals Section No Information Health Concerns No Information MEDICAL EQUIPMENT No Information MENTAL STATUS No Information FUNCTIONAL STATUS No Information ASSESSMENTS Encounter Date Diagnosis Assessment Notes Treatment Notes Treatm ent Clinical Notes Apr, Lentigines (ICD-10 - L81.4) Pt has goodrx coupon Apr, SK (seborrheic keratosis) (ICD-10 - L82.1) Benign Lesion Counseling. The patient was extensively counseled regarding the benign nature of the lesion but that skin cancer may arise in this area just as it would anywhere on their skin. For that reason, return to clinic was recommended for any acute changes, itching, burning, or bleeding. The patient was educated that benign lesions are not a covered insurance benefit and treatment would be elective and cosmetic. They expressed understanding. 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 The patient was extensively counseled regarding the benign nature of the lesion but that skin cancer may arise in this area just as it would anywhere on their skin. For that reason, return to clinic was recommended for any acute changes, itching, burning, or bleeding. The patient was educated that benign lesions are not a covered insurance benefit and treatment would be elective and cosmetic. They expressed understanding. PLAN OF TREATMENT Medication Medication Name Sig Start Date Stop Date Elidel 1 % 1 application Externally Twice a day for 30 days Apr, Levocetirizine Dihydrochloride 5 MG 1 tablet in the ev ening Orally Once a day for 30 day(s) Apr, Hydroquinone 4 % as directed Externally Apply full face twice daily for 3 full months, use sunscreen for 90 days Apr, Treatment Notes Assessment Notes Clinical Notes Lentigines Pt has goodrx coupon SK (seborrheic keratosis) Benign Lesion Counseling. The patient was extensively counseled regarding the benign nature of the lesion but that skin cancer may arise in this area just as it would anywhere on their skin. For that reason, return to clinic was recommended for any acute changes, itching, burning, or bleeding. The patient was educated that benign lesions are not a covered insurance benefit and treatment would be elective and cosmetic. They expressed understanding. Eczema, unspecified type DDX: allergic c ontact, t/c patch testing Idiopathic guttate hypomelanosis Benign Lesion Counseling. The patient was extensively counseled regarding the benign nature of the lesion but that skin cancer may arise in this area just as it would anywhere on their skin. For that reason, return to clinic was recommended for any acute changes, itching, burning, or bleeding. The patient was educated that benign lesions are not a covered insurance benefit and treatment would be elective and cosmetic. They expressed understanding. Next Appt Details 6 Weeks Reason:recheck RASH + face Provider Name:Norma Gold, 02:45:00 PM, [address] [place], [address], Follow Up:6 Weeksrecheck RASH + face Insurance Providers Payer Name Payer Address Payer Phone Insured Name Patient Relati onship to Insured Coverage Start Date Coverage End Date [facility] [employer] DE[employer] [address] [facility] [phone] MARCUS BANEGAS self
--- OUTSIDE RECORDS SUMMARY | 2020-07-03 11:53 | CCD | Continuity of Care Document ---
Author Author Lizbeth ONTIVEROS Organization Unknown Address [address] [place] [address] Phone [phone] Care Team Providers Care Post Manager Name Role Phone Ramirez Alcazar MD [facility] [phone] Problems Active Problems Provider Date Gynecologic examination Rajni Chilel WHNP Onset: 01/13/20 12 Increased frequency of urination Rajni Chilel WHNP Onset: 01/13/2012 Headache Rajni Chilel WHNP Onset: 01/13/2012 High risk sexual behavior Rajni Chilel WHNP Onset: 2011 Contraception care management Ranji Chilel WHNP Onset: Dysuria Rajni Chilel WHNP [...] BSA (Body Surface Area) 1.69 m2 Results Test Acquired Date Facility Test Result H/L Range Note Thinprep W/Reflex HR HPV If Asc-US 06/11/2020 Propa th TP Reflex HPV ASCUS Normal Normal 1 TP Reflex HPV ASCUS SEE IMAGE 1 SPECIME N PART A. Cervical, Endocervical, ThinPrep Pap (Dag Coater) CYTOLOGY HX-------- Date of Last Menstrual Period: N Other Information:Previous Normal Pap: 05/09/19 FINAL DIAGNOSIS---- INTERPRETATION: Negative for Intraepithelial Lesion or Malignancy. SPECIMEN ADEQUACY:Satisfactory for evaluation. Endocervical/transformation zone component present. 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 R10.2 Pelvic and perineal pain Z12.4 Encounter for screening for malignant neoplasm of cervix Z12.39 Encounter for oth screening for malignant neoplasm of breast Z30.41 Encounter for surveillance o f contraceptive pills Assessments Date Code Description Provider 06/11/2020 Z01.411 Encounter for gyneco logical examination (general) (routine) with abnormal findings Aubree Ontiveros MD 06/11/2020 D39.8 Neoplasm of uncertai n behavior of other specified female genital organs Aubree Ontiveros MD 06/11/2020 R10.2 Pelvic and perineal pain Aubree Ontiveros MD 06/11/2020 Z12.4 Encounter for screening for delilah gnant neoplasm of cervix Aubree Ontiveros MD 06/11/2020 Z12.39 Encounter for other screening for malignant neoplasm of breast Aubree Ontiveros MD 06/11/2020 Z30.41 Encounter for surveillance of co ntraceptive pills Aubree Ontiveros MD Plan of Treatment Future Appointment(s):* 07/30/2020 3:00 pm - Aubree Ontiveros MD at [facility] cardiopulmonary supervisor * 07/03/2020 10:00 am - Aubree Ontiveros MD at [facility] * 06/12/2021 11:15 am - Aubree Ontiveros MD at [facility] cardiopulmonary supervisor 06/11/2020 - Aubree Ontiveros MD* Z01.411 Encounter for gynecological examination (general) (routine) with abnormal findings * D39.8 Neoplasm of uncertain behavior of other specified female genital organs * R10.2 Pelvic and perineal pain * Z12.4 Encounter for screening for malignant neoplasm of cervix * Z12.39 Encounter for other screening for malignant neoplasm of breast* New Xrays:* Mammography, Screening, Bilateral, Ordered: 06/11/20 * Z30.41 Encounter for surveillance of contraceptive pills Functional Status Description No Information Available Mental Status Description No Information Available Referrals Description No Information Available
--- OUTSIDE RECORDS SUMMARY | 2020-07-03 11:53 | CCD ---
Author Author [facility] Organization [facility] Address Unknown Phone Unavailable Care Team Providers Care Educational Sign Language Interpreter Name Role Phone Mikalarmond Norma Unavailable PROBLEMS Type Condition ICD9-CM Code QIT38-FB Code Onset Dates Condition S tatus SNOMED Code Notes Problem Lumbago 724.2 Active 840004957 Problem Renal cyst, left Q61.00 Active 31002997 Problem Hematuria - Gross 599.71 Active 995309508 ALLERGIES Allergen (clinical drug ingredient) Drug/Non Drug Allergy do cumented on EMR Reaction Allergy Type Onset Date Status Sulfa (for allergy use only) Anaphylaxis Drug Allergy Active Penicillin (For Allergies Use Only) Hives Drug Allerg y Active environmental runny nose Drug Allergy Active PredniSONE Hives Drug Allergy Active ceclor Hives Drug Allergy Active ENCOUNTERS from 1976 to 2020-05-15 Encounter Location Date Provider Diagnosis [facility] Dermatology [address] [address] May, Norma Gold IMMUNIZATIONS Vaccine Route Administration Date Status Influenza [...] REASON FOR REFERRAL No Information VITAL SIGNS No information MEDICATIONS Medication SIG (Take, Route, Frequency, Duration) Notes Start Da te End Date Status Excedrin Migraine 250-250-65 MG 2 tablets Orally Once a day for 30 da y(s) Active Lo LoEstrin 1/10 1mg/10mcg Active Hydroquinone 4 % as directed Externally Apply full face twice daily for 3 full months, use sunscreen for 90 days Apr, Active Elidel 1 % 1 application Externally Twice a day for 30 days Apr, Active Zyrtec Allergy 10 MG 1 tablet Orally Once a day Active Mometasone Furoate 0.1 % 1 application Externally Once a day for 10 days May, Active Levocetirizine Dihydrochloride 5 MG 1 tablet in the ev ening Orally Once a day for 30 day(s) Apr, Active Imitrex 25 MG 1 tablet as needed Orally Twice a day Active Vitamin B Complex Active PROCEDURES No Information RESULTS No Results REASON FOR VISIT Rx MEDICAL (GENERAL) HISTORY Type Description Date Medical History HTN Surgical History benign lump removal of left breast 1991 Surgical History D&C 1994 Goals Section No Information Health Concerns No Information MEDICAL EQUIPMENT No Information MENTAL STATUS No Information FUNCTIONAL STATUS No Information ASSESSMENTS No Information PLAN OF TREATMENT Medication Medication Name Sig Start Date Stop Date Mometasone Furoate 0.1 % 1 application Externally Once a day for 10 days May, Levocetirizine Dihydrochloride 5 MG 1 tablet in the ev ening Orally Once a day for 30 day(s) Apr, Hydroquinone 4 % as directed Externally Apply full face twice daily for 3 full months, use sunscreen for 90 days Apr, Elidel 1 % 1 application Externally Twice a day for 30 days Apr, Next Appt Details Provider Name:Norma Gold, 02:45:00 PM, [address] [place], [address], Insurance Providers Payer Name Payer Address Payer Phone Insured Name Patient Relati onship to Insured Coverage Start Date Coverage End Date [employer] DE[employer] [address] [facility] [phone] MARCUS BANEGAS self
--- OUTSIDE RECORDS SUMMARY | 2020-07-03 11:53 | CCD | Continuity of Care Document ---
Author Author Lizbeth ONTIVEROS Organization Unknown Address [address] [place] [address] Phone [phone] Care Team Providers Care Quality Eng Name Role Phone Ramirez Alcazar MD [facility] [phone] Problems Active Problems Provider Date Gynecologic examination [...] Available Procedures Date Code Description Status 03/26/2017 [id number] Mammogram Completed Medical Devices Description No Information Available Encounters Type Date Location Provider Dx Diagnosis Office Visit 06/11/2020 10:30a [facility] emergency manager Aubree Ontiveros MD Z0 1.411 Encntr for treasury manager exam (general) (routine) w abnormal findings D39.8 [...] 3:00 pm - Aubree Ontiveros MD at [facility] emergency manager * 07/03/2020 10:00 am - Aubree [facility]os [facility] * 06/12/2021 11:15 am - Aubree Ontiveros MD at [facility] emergency manager 06/11/2020 - Aubree Ontiveros MD* Z01.411 Encounter for gynecological examination (general) (routine) with abnormal findings * D39.8 Neoplasm of uncertain behavior of other specified female genital organs * R10.2 Pelvic and perineal pain * Z12.4 Encounter for screening for malignant neoplasm of cervix* New Labs:* Thinprep W/Reflex HR HPV If Asc-US, Ordered: 06/11/20 * Z12.39 Encounter for other screening for malignant neoplasm of breast* New Xrays:* Mammography, Screening, Bilateral, Ordered: 06/11/20 * Z30.41 Encounter for surveillance of contraceptive pills Functional Status Description No Information Available Mental Status Description No Information Available Referrals Description No Information Available
--- OUTSIDE RECORDS SUMMARY | 2020-07-03 11:53 | CCD ---
Author Author [facility] Organization [facility] Address Unknown Phone Unavailable Care Team Providers Care Pick And Shovel Man Name Role Phone Mikalarmond Norma Unavailable PROBLEMS Type Condition ICD9-CM Code SRH37-LB Code Onset Dates Condition S tatus SNOMED Code Notes Problem Lumbago 724.2 Active 308710845 Problem Renal cyst, left Q61.00 Active 88983035 Problem Hematuria - Gross 599.71 Active 546633765 ALLERGIES Allergen (clinical drug ingredient) Drug/Non Drug Allergy do cumented on EMR Reaction Allergy Type Onset Date Status Sulfa (for allergy use only) Anaphylaxis Drug Allergy Active Penicillin (For Allergies Use Only) Hives Drug Allerg y Active environmental runny nose Drug Allergy Active PredniSONE Hives Drug Allergy Active ceclor Hives Drug Allergy Active ENCOUNTERS from 1976 to 2020-05-16 Encounter Location Date Provider Diagnosis [facility] Dermatology [address] [address] May, Norma Gold IMMUNIZATIONS Vaccine Route Administration [...] Information RESULTS No Results REASON FOR VISIT No Information MEDICAL (GENERAL) HISTORY Type Description Date Medical [...] Details Provider Name:Norma Gold, 02:45:00 PM, [address] [place], [address], Insurance Providers Payer Name Payer Address Payer Phone Insured Name Patient Relati onship to Insured Coverage Start Date Coverage End Date [employer] DEPT [address] [facility] [phone] MARCUS BANEGAS self
--- OUTSIDE RECORDS SUMMARY | 2020-07-03 11:54 | CCD ---
Author Author [facility] Organization [facility] Address Unknown Phone Unavailable Care Team Providers Care Chief Catalyst Operator Name Role Phone GodfreyElo ma Unavailable NAGI JOHNSON MD Unavailable Unavailable NAGI JOHNSON MD Unavailable Unavailable NAGI JOHNSON MD Unavailable Unavailable NAGI JOHNSON MD Unavailable Unavailable NAGI JOHNSON MD Unavailable Unavailable NAGI JOHNSON MD Unavailable Unavailable NAGI JOHNSON MD Unavailable Unavailable NAGI JOHNSON MD Unavailable Unavailable NAGI JOHNSON MD Unavailable Unavailable NAGI JOHNSON MD Unavailable Unavailable NAGI JOHNSON MD Unavailable Unavailable NAGI JOHNSON MD Unavailable Unavailable NAGI JOHNSON MD Unavailable Unavailable NAGI JOHNSON MD Unavailable Unavailable NAGI JOHNSON MD Unavailable Unavailable NAGI JOHNSON MD Unavailable Unavailable NAGI JOHNSON MD Unavailable Unavailable NAGI JOHNSON MD Unavailable Unavailable NAGI JOHNSON MD Unavailable Unavailable NAGI JOHNSON MD Unavailable Unavailable NAGI JOHNSON MD Unavailable Unavailable NAGI JOHNSON MD Unavailable Unavailable NAGI JOHNSON MD Unavailable Unavailable NAGI JOHNSON MD Unavailable Unavailable CHROSTOWSKI, NAGI MD Unavailable Unavailable CHROSTOWSKINAGI MD Unavailable Unavailable CHROSTOWSKI, NAGI MD Unavailable Unavailable CHROSTOWSKI, NAGI MD Unavailable Unavailable CHROSTOWSKI, NAGI MD Unavailable Unavailable CHROSTOWSKI, NAGI MD Unavailable Unavailable CHROSTOWSKI, NAGI MD Unavailable Unavailable CHROSTOWSKI, NAGI MD Unavailable Unavailable CHROSTOWSKI, NAGI MD Unavailable Unavailable CHROSTOWSKI, NAGI MD Unavailable Unavailable CHROSTOWSKI, NAGI MD Unavailable Unavailable CHROSTOWSKI, NAGI MD Unavailable Unavailable CHROSTOWSKI, NAGI MD Unavailable Unavailable CHROSTOWSKI, NAGI MD Unavailable Unavailable CHROSTOWSKI, NAGI MD Unavailable Unavailable CHROSTOWSKI, NAGI MD Unavailable Unavailable Marcelino Osborne Unavailable CHLOE, M JASMEET DIE CUTTING MACHINE OPERATOR Unavailable Unavailable CHLOE, M JASMEET DIE CUTTING MACHINE OPERATOR Unavailable Unavailable CHLOE, M JASMEET DIE CUTTING MACHINE OPERATOR Unavailable Unavailable CHLOE, M JASMEET DIE CUTTING MACHINE OPERATOR Unavailable Unavailable CHLOE, M JASMEET DIE CUTTING MACHINE OPERATOR Unavailable Unavailable CHLOE, M JASMEET DIE CUTTING MACHINE OPERATOR Unavailable Unavailable CHLOE, M JASMEET DIE CUTTING MACHINE OPERATOR Unavailable Unavailable CHLOE, M JASMEET DIE CUTTING MACHINE OPERATOR Unavailable Unavailable CHLOE, M JASMEET DIE CUTTING MACHINE OPERATOR Unavailable Unavailable CHLOE, M JASMEET DIE CUTTING MACHINE OPERATOR Unavailable Unavailable CHLOE, M JASMEET DIE CUTTING MACHINE OPERATOR Unavailable Unavailable CHLOE, M JASMEET DIE CUTTING MACHINE OPERATOR Unavailable Unavailable CHLOE, M JASMEET DIE CUTTING MACHINE OPERATOR Unavailable Unavailable CHLOE, M JASMEET DIE CUTTING MACHINE OPERATOR Unavailable Unavailable CHLOE, M JASMEET DIE CUTTING MACHINE OPERATOR Unavailable Unavailable CHLOE, M JASMEET DIE CUTTING MACHINE OPERATOR Unavailable Unavailable CHLOE, M JASMEET DIE CUTTING MACHINE OPERATOR Unavailable Unavailable CHLOE, M JASMEET DIE CUTTING MACHINE OPERATOR Unavailable Unavailable CHLOE, M JASMEET DIE CUTTING MACHINE OPERATOR Unavailable Unavailable CHLOE, M JASMEET DIE CUTTING MACHINE OPERATOR Unavailable Unavailable CHLOE, M JASMEET DIE CUTTING MACHINE OPERATOR Unavailable Unavailable CHLOE, M JASMEET DIE CUTTING MACHINE OPERATOR Unavailable Unavailable CHLOE, M JASMEET DIE CUTTING MACHINE OPERATOR Unavailable Unavailable CHLOE, M JASMEET DIE CUTTING MACHINE OPERATOR Unavailable Unavailable CHLOE, M JASMEET DIE CUTTING MACHINE OPERATOR Unavailable Unavailable CHLOE, M JASMEET DIE CUTTING MACHINE OPERATOR Unavailable Unavailable CHLOE, M JASMEET DIE CUTTING MACHINE OPERATOR Unavailable Unavailable CHLOE, M JASMEET DIE CUTTING MACHINE OPERATOR Unavailable Unavailable CHLOE, M JASMEET DIE CUTTING MACHINE OPERATOR Unavailable Unavailable CHLOE, M JASMEET DIE CUTTING MACHINE OPERATOR Unavailable Unavailable CHLOE, M JASMEET DIE CUTTING MACHINE OPERATOR Unavailable Unavailable CHLOE, M JASMEET DIE CUTTING MACHINE OPERATOR Unavailable Unavailable Mili Candelario Unavailable Quinton PATE MD Unavailable Unavailable Quinton PATE MD Unavailable Unavailable Quinton PATE MD Unavailable Unavailable Quinton PATE MD Unavailable Unavailable Quinton PATE MD Unavailable Unavailable Quinton PATE MD Unavailable Unavailable Quinton PATE MD Unavailable Unavailable Quinton PATE MD Unavailable Unavailable PATEQuinton MD Unavailable Unavailable PATEQuinton MD Unavailable Unavailable PATE E MATHEW MARADIAGA Unavailable Unavailable PATE E MATHEW MARADIAGA Unavailable Unavailable PATE E MATHEW MARADIAGA Unavailable Unavailable PATE E MATHEW MARADIAGA Unavailable Unavailable PATE E MATHEW MARADIAGA Unavailable Unavailable PATE E MATHEW MARADIAGA Unavailable Unavailable PATE E MATHEW MARADIAGA Unavailable Unavailable PATE E MATHEW MARADIAGA Unavailable Unavailable PATE E MATHEW MARADIAGA Unavailable Unavailable PATE E MATHEW MARADIAGA Unavailable Unavailable PATE E MATHEW MARADIAGA Unavailable Unavailable PATE E MATHEW MARADIAGA Unavailable Unavailable PATE E MATHEW MARADIAGA Unavailable Unavailable PATE E MATHEW MARADIAGA Unavailable Unavailable PATE E MATHEW MARADIAGA Unavailable Unavailable PATE E MATHEW MARADIAGA Unavailable Unavailable PATE E MATHEW MARADIAGA Unavailable Unavailable PATE E MATHEW MARADIAGA Unavailable Unavailable PATE E MATHEW MARADIAGA Unavailable Unavailable PATE E MATHWE MARADIAGA Unavailable Unavailable PATE E MATHEW MARADIAGA Unavailable Unavailable PATE E MATHEW MARADIAGA Unavailable Unavailable PATE E MATHEW MARADIAGA Unavailable Unavailable PATE E MATHEW MARADIAGA Unavailable Unavailable PATE E MATHEW MARADIAGA Unavailable Unavailable PATE E MATHEW MARADIAGA Unavailable Unavailable PATE E MATHEW MARADIAGA Unavailable Unavailable PATE E MATHEW MARADIAGA Unavailable Unavailable PATE E MATHEW MARADIAGA Unavailable Unavailable PATE E MATHEW MARADIAGA Unavailable Unavailable PATEQuinton MD Unavailable Unavailable PATE E MATHEW MARADIAGA Unavailable Unavailable PATE E MATHEW MARADIAGA Unavailable Unavailable PATE E MATHEW MARADIAGA Unavailable Unavailable PATE E MATHEW MARADIAGA Unavailable Unavailable PATE E MATHEW MARADIAGA Unavailable Unavailable PATE E MATHEW MARADIAGA Unavailable Unavailable PATE E MATHEW MARADIAGA Unavailable Unavailable PATE E MATHEW MARADIAGA Unavailable Unavailable PATE E MATHEW MARADIAGA Unavailable Unavailable PATE E MATHEW MARADIAGA Unavailable Unavailable PATE E MATHEW MARADIAGA Unavailable Unavailable PATE E MATHEW MARADIAGA Unavailable Unavailable PATE E MATHEW MARADIAGA Unavailable Unavailable PATEQuinton MD Unavailable Unavailable PATE E MATHEW MARADIAGA Unavailable Unavailable PATE E MATHEW MARADIAGA Unavailable Unavailable CHLOE, M JASMEET DIE CUTTING MACHINE OPERATOR Unavailable Unavailable CHLOE, M JASMEET DIE CUTTING MACHINE OPERATOR Unavailable Unavailable CHLOE, M JASMEET DIE CUTTING MACHINE OPERATOR Unavailable Unavailable CHLOE, M JASMEET DIE CUTTING MACHINE OPERATOR Unavailable Unavailable CHLOE, M JASMEET DIE CUTTING MACHINE OPERATOR Unavailable Unavailable CHLOE, M JASMEET DIE CUTTING MACHINE OPERATOR Unavailable Unavailable CHLOE, M JASMEET DIE CUTTING MACHINE OPERATOR Unavailable Unavailable CHLOE, M JASMEET DIE CUTTING MACHINE OPERATOR Unavailable Unavailable CHLOE, M JASMEET DIE CUTTING MACHINE OPERATOR Unavailable Unavailable CHLOE, M JASMEET DIE CUTTING MACHINE OPERATOR Unavailable Unavailable CHLOE, M JASMEET DIE CUTTING MACHINE OPERATOR Unavailable Unavailable CHLOE, M JASMEET DIE CUTTING MACHINE OPERATOR Unavailable Unavailable CHLOE, M JASMEET DIE CUTTING MACHINE OPERATOR Unavailable Unavailable CHLOE, M JASMEET DIE CUTTING MACHINE OPERATOR Unavailable Unavailable CHLOE, M JASMEET DIE CUTTING MACHINE OPERATOR Unavailable Unavailable CHLOE, M JASMEET DIE CUTTING MACHINE OPERATOR Unavailable Unavailable CHLOE, M JASMEET DIE CUTTING MACHINE OPERATOR Unavailable Unavailable CHLOE, M JASMEET DIE CUTTING MACHINE OPERATOR Unavailable Unavailable CHLOE, M JASMEET DIE CUTTING MACHINE OPERATOR Unavailable Unavailable CHLOE, M JASMEET DIE CUTTING MACHINE OPERATOR Unavailable Unavailable CHLOE, M JASMEET DIE CUTTING MACHINE OPERATOR Unavailable Unavailable CHLOE, M JASMEET DIE CUTTING MACHINE OPERATOR Unavailable Unavailable CHLOE, M JASMEET DIE CUTTING MACHINE OPERATOR Unavailable Unavailable CHLOE, M JASMEET DIE CUTTING MACHINE OPERATOR Unavailable Unavailable CHLOE, M JASMEET DIE CUTTING MACHINE OPERATOR Unavailable Unavailable CHLOE, M JASMEET DIE CUTTING MACHINE OPERATOR Unavailable Unavailable CHLOE, M JASMEET DIE CUTTING MACHINE OPERATOR Unavailable Unavailable CHLOE, M JASMEET DIE CUTTING MACHINE OPERATOR Unavailable Unavailable CHLOE, M JASMEET DIE CUTTING MACHINE OPERATOR Unavailable Unavailable CHLOE, M JASMEET DIE CUTTING MACHINE OPERATOR Unavailable Unavailable CHLOE, M JASMEET DIE CUTTING MACHINE OPERATOR Unavailable Unavailable CHLOE, M JASMEET DIE CUTTING MACHINE OPERATOR Unavailable Unavailable MACHADOLUCIE MCCLURE MD Unavailable Unavailable MACHADOLUCIE MCCLURE MD Unavailable Unavailable MACHADOLUCIE MCCLURE MD Unavailable Unavailable MACHADOLUCIE MCCLURE MD Unavailable Unavailable MACHADOLUCIE MCCLURE MD Unavailable Unavailable MACHADOLUCIE MCCLURE MD Unavailable Unavailable MACHADOLUCIE MCCLURE MD Unavailable Unavailable MACHADOLUCIE MCCLURE MD Unavailable Unavailable MACHADOLUCIE MCCLURE MD Unavailable Unavailable MACHADOLUCIE MCCLURE MD Unavailable Unavailable MACHADOLUCIE MCCLURE MD Unavailable Unavailable MACHADOLUCIE MCCLURE MD Unavailable Unavailable MACHADOLUCIE MCCLURE MD Unavailable Unavailable MACHADOLUCIE MCCLURE MD Unavailable Unavailable MACHADOLUCIE MCCLURE MD Unavailable Unavailable MACHADOLUCIE MCCLURE MD Unavailable Unavailable MACHADOLUCIE MCCLURE MD Unavailable Unavailable MACHADOLUCIE MCCLURE MD Unavailable Unavailable MACHADOLUCIE MCCLURE MD Unavailable Unavailable MACHADOLUCIE MCCLURE MD Unavailable Unavailable MACHADOLUCIE MCCLURE MD Unavailable Unavailable MACHADOLUCIE MCCLURE MD Unavailable Unavailable MACHADOLUCIE MCCLURE MD Unavailable Unavailable MACHADOLUCIE MCCLURE MD Unavailable Unavailable MACHADOLUCIE MCCLURE MD Unavailable Unavailable MACHADOLUCIE MCCLURE MD Unavailable Unavailable MACHADOLUCIE MCCLURE MD Unavailable Unavailable MACHADOLUCIE MCCLURE MD Unavailable Unavailable MACHADOLUCIE MCCLURE MD Unavailable Unavailable MACHADOLUCIE MCCLURE MD Unavailable Unavailable MACHADOLUCIE MCCLURE MD Unavailable Unavailable MACHADOLUCIE MCCLURE MD Unavailable Unavailable MACHADOLUCIE MCCLURE MD Unavailable Unavailable MACHADOLUCIE MCCLURE MD Unavailable Unavailable MACHADOLUCIE MCCLURE MD Unavailable Unavailable MACHADOLUCIE MCCLURE MD Unavailable Unavailable MACHADOLUCIE MCCLURE MD Unavailable Unavailable MACHADOLUCIE MCCLURE MD Unavailable Unavailable MACHADOLUCIE MCCLURE MD Unavailable Unavailable MACHADOLUCIE MCCLURE MD Unavailable Unavailable MACHADOLUCIE MCCLURE MD Unavailable Unavailable MACHADOLUCIE MCCLURE MD Unavailable Unavailable MACHADOLUCIE MCCLURE MD Unavailable Unavailable MACHADOLUCIE MCCLURE MD Unavailable Unavailable MACHADOLUCIE MCCLURE MD Unavailable Unavailable LUCIE MACHADO MD Unavailable Unavailable LUCIE MACHADO MD Unavailable Unavailable LUCIE MACHADO MD Unavailable Unavailable LUCIE MACHADO MD Unavailable Unavailable LUCIE MACHADO MD Unavailable Unavailable LUCIE MACHADO MD Unavailable Unavailable LUCIE MACHADO MD Unavailable Unavailable LUCIE MACHADO MD Unavailable Unavailable LUCIE MACHADO MD Unavailable Unavailable MACHADOLUCIE MCCLURE MD Unavailable Unavailable LUCIE MACHADO MD Unavailable Unavailable LUCIE MACHADO MD Unavailable Unavailable LUCIE MACHDAO MD Unavailable Unavailable LUCIE MACHADO MD Unavailable Unavailable LUCIE MACHADO MD Unavailable Unavailable LUCIE MACHADO MD Unavailable Unavailable LUCIE MACHADO MD Unavailable Unavailable LUCIE MACHADO MD Unavailable Unavailable LUCIE MACHADO MD Unavailable Unavailable LUCIE MACHADO MD Unavailable Unavailable LUCIE MACHADO MD Unavailable Unavailable LUCIE MACHADO MD Unavailable Unavailable LUCIE MACHADO MD Unavailable Unavailable LUCIE MACHADO MD Unavailable Unavailable Cathy Davila Unavailable Raya ONTIVEROS MD Unavailable Unavailable ONTIVEROS, L MARAH MARADIAGA Unavailable Unavailable ONTIVEROS, L MARAH MARADIAGA Unavailable Unavailable ONTIVEROS, L MARAH MARADIAGA Unavailable Unavailable ONTIVEROS, L MARAH MARADIAGA Unavailable Unavailable ONTIVEROS, L MARAH MARADIAGA Unavailable Unavailable ONTIVEROS, L MARAH MARADIAGA Unavailable Unavailable ONTIVEROS, Raya CRYSTAL MD Unavailable Unavailable ONTIVEROS, L MARAH MARADIAGA Unavailable Unavailable ONTIVEROS, Raya CRYSTAL MD Unavailable Unavailable ONTIVEROS, L MARAH MARADIAGA Unavailable Unavailable ONTIVEROS, L MARAH MARADIAGA Unavailable Unavailable ONTIVEROS, L MARAH MARADIAGA Unavailable Unavailable ONTIVEROS, L MARAH MARADIAGA Unavailable Unavailable ONTIVEROS, L MARAH MARADIAGA Unavailable Unavailable ONTIVEROS, L MARAH MARADIAGA Unavailable Unavailable ONTIVEROS, L MARAH MARADIAGA Unavailable Unavailable ONTIVEROS, L MARAH MARADIAGA Unavailable Unavailable ONTIVEROS, L MARAH MARADIAGA Unavailable Unavailable ONTIVEROS, L MARAH MARADIAGA Unavailable Unavailable ONTIVEROS, L MARAH MARADIAGA Unavailable Unavailable ONTIVEROS, L MARAH MARADIAGA Unavailable Unavailable ONTIVEROS, L MARAH MARADIAGA Unavailable Unavailable ONTIVEROS, L MARAH MARADIAGA Unavailable Unavailable ONTIVEROS, L MARAH MARADIAGA Unavailable Unavailable ONTIVEROS, L MARAH MARADIAGA Unavailable Unavailable ONTIVEROS, L MARAH MARADIAGA Unavailable Unavailable ONTIVEROS, L MARAH MARADIAGA Unavailable Unavailable ONTIVEROS, L MARAH MARADIAGA Unavailable Unavailable ONTIVEROS, L MARAH MARADIAGA Unavailable Unavailable ONTIVEROS, L MARAH MARADIAGA Unavailable Unavailable ONTIVEROS, L MARAH MD Unavailable Unavailable ONTIVEROS, L MARAH MD Unavailable Unavailable ONTIVEROS, L MARAH MD Unavailable Unavailable ONTIVEROS, L MARAH MD Unavailable Unavailable ONTIVEROS, L MARAH MD Unavailable Unavailable ONTIVEROS, L MARAH MD Unavailable Unavailable ONTIVEROS, L MARAH MD Unavailable Unavailable ONTIVEROS, L MARAH MD Unavailable Unavailable ONTIVEROS, L MARAH MD Unavailable Unavailable ONTIVEROS, L MARAH MD Unavailable Unavailable ONTIVEROS, L MARAH MD Unavailable Unavailable Re-disclosure Warning The records that you are about to access may contain information from federally-assisted alcohol or drug abuse programs. If such information is present, then the following federally mandated warning applies: This information has been disclosed to you from records protected by federal confidentiality rules (42 CFR part 2). The federal rules prohibit you from making any further disclosure of this information unless further disclosure is expressly permitted by the written consent of the person to whom it pertains or as otherwise permitted by 42 CFR part 2. A general authorization for the release of medical or other information is NOT sufficient for this purpose. The Federal rules restrict any use of the information to criminally investigate or prosecute any alcohol or drug abuse patient.The records that you are about to access may contain highly sensitive health information, the redisclosure of which is protected by Article 27-F of the [facility] Public Health law. If you continue you may have access to information: Regarding HIV / AIDS; Provided by facilities licensed or operated by the [facility] Office of Mental Health; or Provided by the [facility] Office for People With Developmental Disabilities. If such information is present, then the following [facility] mandated warning applies: This information has been disclosed to you from confidential records which are protected by state law. State law prohibits you from making any further disclosure of this information without the specific written consent of the person to whom it pertains, or as otherwise permitted by law. Any unauthorized further disclosure in violation of state law may result in a fine or half-way sentence or both. A general authorization for the release of medical or other information is NOT sufficient authorization for further disc losure. Allergies and Adverse Reactions Type Description Substance Reaction Status Data Source(s ) BRANDNAME ANTONIA [facility] Drug allergy CLINDAMYCIN CLINDAMYCIN [facility] CLASS PENICILLINS (CLASS) PENICILLINS (CLASS) [facility] CLASS SULFA (sulfonamide) SULFA (sulfonamide) [facility] Family History Family Member Name Family Member Gender Family Member Status Date o f Status Description Data Source(s) Unknown Male Problem [facility] ([facility]) Unknown Unknown Problem [facility] Unknown Male Problem [facility] ([facility]) Unknown Male Problem [facility] ([facility]) Encounters Encounter Providers Location Date Indications Data Source(s ) Outpatient Attender: MARAH [facility] environmental educator 09:30:00 AM EST [facility] ([facility] [place] [address] [facility] [address] 05/14/2020 12:00:00 AM EST [facility] [place] [address] [facility] [address] 05/13/2020 12:00:00 AM EST [facility] [place] [place] [address] [facility] [facility] [place] [address] 05/07/2020 12:00:00 AM EST [facility] [id number]" Psychotherapy Attender: Elo Xie [facility] 03/14/2020 02:15:00 AM EDT - 03/14/2020 02:15:00 AM EDT [facility] ([facility]) Attender: Elo Xie 03/14/2020 12:00:00 A M EDT [facility] ([facility]) Outpatient Attender: MATHEW PATE MD Main Office 03/07/2020 02:30:00 PM EDT [facility] ([facility]) [id number]"[facility] 12:45:00 PM EDT - 02/12/2020 12:45:00 PM EDT [facility] ([facility]) Attender: Elo Xie 02/12/2020 12:00:00 A M EDT [facility] ([facility]) Outpatient Attender: NAGI JOHNSON MD Main Office 01/22/2020 03:45:00 PM EDT [facility] ([facility] Outpatient Attender: MATHEW PATE MD Main Office 01/14/2020 02:00:00 PM EDT [facility] ([facility]) Outpatient Attender: LUCIE MACHADO MDConsultant: LUCIE Dos Santos MD 01/08/2020 02:57:00 PM EDT - 01/08/2020 02:57:00 PM EDT [facility] Outpatient Attender: LUCIE MACHADO MDConsultant: LUCIE Dos Santos MD 12/12/2019 11:13:00 AM EDT - 12/12/2019 11:13:00 AM EDT [facility] Office Visit Attender: LUCIE MACHADO MD Family Practice 2019 11:00:00 AM EDT [facility] [id number]"[facility] 12/11[facility] 01:00:00 AM EDT - 12/11/2019 01:00:00 AM EDT [facility] ([facility]) Attender: Cathy Davila 12/11/2019 12:00:00 AM EDT [facility] ([facility]) Outpatient Referrer: JASMEET CORONA NP 12/07/2019 05:43:00 AM EDT [facility] [id number]"Psychotherapy [facility] 12:00:00 PM EDT - 12/03/2019 12:00:00 PM EDT [facility] ([facility]) Attender: Marcelino Osborne 12/03/2019 12:00:00 AM EDT [facility] ([facility]) Outpatient Attender: LUCIE MACHADO MDConsultant: LUCIE Dos Santos MD 11/12/2019 02:59:00 PM EDT - 11/12/2019 02:59:00 PM EDT [facility] Telemed Diag Eval no med Attender: Marcelino Bello [facility] 11/06/2019 05:00:00 AM EDT - 11/06/2019 05:00:00 AM EDT [facility] ([facility]) Attender: Marcelino Osborne 11/06/2019 12:00:00 AM EDT [facility] ([facility]) Psychiatric Diagnostic Evaluation (Non-Medical) Attender: Dominick tate [place] [facility] 08/02/2019 12:00:00 PM EST - 08/02/2019 12:00:00 PM EST [facility] ([facility]) Attender: Quiana [place] 08/02/2019 12:00:00 AM EST [facility] ([facility]) Psychiatric Diagnostic Evaluation (Non-Medical) Attender: Dominick [facility] 07/20/2019 05:00:00 AM EST - 07/20/2019 05:00:00 AM EST [facility] 12:00:00 AM EST [facility] ([facility]) Extended Individual Psychotherapy - 45 min Attender: [facility] 07/09/2019 09:15:00 AM EST - 07/09/2019 09:15:00 AM EST [facility] ([facility]) Attender: Mili [employer] 07/09/2019 12:00:00 AM EST [facility] ([facility]) Outpatient Attender: LUCIE MACHADO MDConsultant: LUCIE Dos Santos MD 05/29/2019 01:57:00 PM EST - 05/29/2019 01:57:00 PM EST [facility] Outpatient Attender: LUCIE MACHADO MD Family Practice 05/29/2019 0 1:00:00 PM EST [facility] ([facility]) Outpatient Attender: JASMEET Davidson environmental educator 09:30:00 AM EST [facility] ([facility]) Medications Medication Brand Name Start Date Product Form Dose Route Admi nistrative Instructions Pharmacy Instructions Status Indications Reaction Description Data Source(s) mometasone furoate 1 MG/ML Topical Cream Mometasone Fu roate 0.1 % Mometasone Furoate 0.1 % 05/14/2020 12:00:00 AM EST 1.0 {application} active Mometasone Furoate 0.1 % eCW1 ([facility]) mometasone furoate 1 MG/ML Topical Cream Mometasone Fu roate 0.1 % Mometasone Furoate 0.1 % 05/14/2020 12:00:00 AM EST 1.0 {application} active Mometasone Furoate 0.1 % eCW1 ([facility]) hydroquinone 40 MG/ML Topical Cream Hydroquinone 4 % Hydroqu inone 4 % 05/07/2020 12:00:00 AM EST active Hydroqui none 4 % eCW1 ([facility]) levocetirizine dihydrochloride 5 MG Oral Tablet Levocetirizine Dihydrochloride 5 MG Levocetirizine Dihydrochloride 5 MG 05/07/2020 12:00:00 AM EST 1.0 {tablet_in_the_evening} active Levoceti rizine Dihydrochloride 5 MG eCW1 ([facility]) levocetirizine dihydrochloride 5 MG Oral Tablet Levocetirizine Dihydrochloride 5 MG Levocetirizine Dihydrochloride 5 MG 05/07/2020 12:00:00 AM EST 1.0 {tablet_in_the_evening} active Levoceti rizine Dihydrochloride 5 MG eCW1 ([facility]) levocetirizine dihydrochloride 5 MG Oral Tablet Levocetirizine Dihydrochloride 5 MG Levocetirizine Dihydrochloride 5 MG 05/07/2020 12:00:00 AM EST 1.0 {tablet_in_the_evening} active Levoceti rizine Dihydrochloride 5 MG eCW1 ([facility]) hydroquinone 40 MG/ML Topical Cream Hydroquinone 4 % Hydroqu inone 4 % 05/07/2020 12:00:00 AM EST active Hydroqui none 4 % eCW1 ([facility]) hydroquinone 40 MG/ML Topical Cream Hydroquinone 4 % Hydroqu inone 4 % 05/07/2020 12:00:00 AM EST active Hydroqui none 4 % eCW1 ([facility]) Pimecrolimus 10 MG/ML Topical Cream [Elidel] Elidel 1 % Elid el 1 % 05/07/2020 12:00:00 AM EST 1.0 {application} active Elidel 1 % eCW1 ([facility]) Pimecrolimus 10 MG/ML Topical Cream [Elidel] Elidel 1 % Elid el 1 % 05/07/2020 12:00:00 AM EST 1.0 {application} active Elidel 1 % eCW1 ([facility]) Pimecrolimus 10 MG/ML Topical Cream [Elidel] Elidel 1 % Elid el 1 % 05/07/2020 12:00:00 AM EST 1.0 {application} active Elidel 1 % eCW1 ([facility]) Atenolol 25 MG Oral Tablet Atenolol 03/07/2020 12:00:00 AM EDT active [facility] Sumatriptan 100 MG Oral Tablet [Imitrex] Imitrex 01/13/2020 12:00: 00 AM EDT ORAL active [facility] ([facility] Acetaminophen 250 MG / Aspirin 250 MG / Caffeine 65 MG Oral Tablet [Excedrin] Excedrin Migraine 01/13/2020 12:00:00 AM EDT activ e [facility] ([facility]) Loestrin Fe 07/02 Loestrin Fe 07/0201/13/2020 12:00:00 AM EDT ORAL active [facility] ([facility]) Doxycycline Monohydrate 100 MG Oral Capsule Doxycycline Morris hydrate 05/29/2019 12:00:00 AM EST ORAL completed [facility] ([facility]) Insurance Providers Payer name Policy type / Coverage type Policy ID Covered green party ID Covered green party's relationship to alcantara Policy Alcantara Plan Information DARRIN [id number] SP [id number] EMED[place] [id number] SP [id number] [place] [id number] 18 [id number] [place] XIX MAN -PHYSICIAN [id number] 18 [id number] [place] [id number] S [id number] DARRIN [id number] SP [id number] [facility] [id number] Preferred Provider Organization (PPO) [id number] BCBS [id number] Blue Cross/Blue Shield [id number] BCBS [id number] Blue Cross/Blue Shield [id number] Tobias [id number] Commercial Insur ance Co. [id number] Darrin Medicaid/CHP/FHP Commercial [id number] Self [id number] Darrin Care [place] [id number] Self [id number] ANSI-Commercial [id number] Tobias Care Commercial [id number] Self [id number] [place] [id number] Self [id number] [place] [id number] Self [id number] DARRIN I [id number] Self [id number] [place] Medigap Part B [id number] Self [id number] [facility] Medigap Part B [id number] Self [id number] Darrin Care [place] [id number] Self [id number] DARRIN [id number] SP [id number] [place] [id number] Self [id number] [place]ARE [place] [id number] S [id number] [place] [id number] Self [id number] [place] [id number] Self [id number] [place] Medig[place] Part B [id number] Self [id number] [place] Medigap Part B Self [facility] Medigap Part B Self Darrin Care [place] Self EXCELLUS I [id number] Self [id number] UNHC AMERICHOICE XIX HMO [id number] 18 [id number] [facility] COMMUNITY PLAN [facility] [id number] SP [id number] [facility] P [id number] S [id number] MEDICAID - CLINIC [id number] BLUE CROSS AQUINO PLAN [id number] SP [id number] HMO BLUE [id number] SP [id number] BLUE CROSS BLUE SHIELD-CLINIC [id number] Problems, Conditions, and Diagnoses Code Display Name Description Problem Type Effective Dates Data Source(s) F43.22 Adjustment disorder with anxiety Adjustment Diso rder, With anxiety Condition 03/14/2020 12:00:00 AM EDT [facility] ([facility]) [id number] Difficulty breathing Difficulty breathing Problem 03/07/2020 12:00:00 AM EDT [facility] ([facility]) [id number] Migraine Migraine Problem 01/14/2020 12:00:00 AM ED T [facility] ([facility]) [id number] Heart murmur Heart murmur Problem 01/14/2020 12:00:00 A M EDT [facility] ([facility]) [id number] Precordial pain Precordial pain Problem 01/14/2020 12:0 0:00 AM EDT [facility] ([facility]) [id number] Electrocardiogram abnormal Electrocardiogram abnormal Problem 01/14/2020 12:00:00 AM EDT [facility] ([facility]) [id number] Palpitations Palpitations Problem 01/14/2020 12:00:00 A M EDT [facility] ([facility]) F43.20 Adjustment disorder, unspecified Adjustment Diso rder, Unspecified Condition 08/02/2019 12:00:00 AM EST [facility] ([facility]) L309 Dermatitis, unspecified Dermatitis, unspecified Diagno sis 01/08/2020 02:57:00 PM EDT [facility] D225 Melanocytic nevi of trunk Melanocytic nevi of trunk Di agnosis 01/08/2020 02:57:00 PM EDT [facility] M545 Low back pain Low back pain Diagnosis 12/12/2019 11:13:00 AM EDT [facility] R002 Palpitations Palpitations Diagnosis 12/12/2019 11:13:00 A M EDT [facility] 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 Diagnosis 12/12/2019 11:13:00 AM EDT [facility] N281 Cyst of kidney, acquired Cyst of kidney, acquired Diag nosis 12/12/2019 11:13:00 AM EDT [facility] [id number] Migraine without aura, not intractable, without status migrainosus Migraine without aura, not intractable, without status migrainosus Diagnosis 11/12/2019 02:59:00 PM EDT [facility] Z0000 Encounter for general adult medical exam ination without abnormal findings Encounter for general adult medical examination without abnormal findings Diagnosis 11/12/2019 02:59:00 PM EDT [facility] J029 Acute pharyngitis, unspecified Acute pharyngitis, unsp ecified Diagnosis 05/29/2019 01:57:00 PM EST [facility] Surgeries/Procedures Procedure Description Date Indications Data Source(s) TEMPMHCTelemed 30" Psychotherapy 020 12:00:00 AM EDT - 03/14/2020 12:00:00 AM EDT [facility] ([facility]) TEMPMHCTelemed 30" Psychotherapy 03/14/2020 12:00:00 A M EDT [facility] ([facility]) CV STRS TST XERS&/OR RX CONT ECG PHYS SI&R 02/13/2020 12:00:00 AM EDT [facility] ([facility]) [id number]"Psychotherapy 0 12:00:00 AM EDT - 02/12/2020 12:00:00 AM EDT [facility] ([facility]) [id number]"Psychotherapy 02/12/2020 12:00:00 AM EDT [facility] ([facility]) ECHO TTHRC R-T 2D W/WOM-MODE COMPL SPEC&COLR DOP 02/06 12:00:00 AM EDT [facility] ([facility]) XTRNL ECG < 48 HR RECORDING 01/16/2020 12:00:00 AM EDT [facility] ([facility]) XTRNL ECG CONTINUOUS RHYTHM PHYS REVIEW&INTERPJ 2019 12:00:00 AM EDT [facility] ([facility]) ECG ROUTINE ECG W/LEAST 12 LDS W/I&R 01/14/2020 12:00: 00 AM EDT [facility] ([facility]) [id number]"Psychotherapy 0 12:00:00 AM EDT - 12/11/2019 12:00:00 AM EDT [facility] ([facility]) [id number]"Psychotherapy 12/11/2019 12:00:00 AM EDT [facility] ([facility]) [id number]"Psychotherapy 0 12:00:00 AM EDT - 12/03/2019 12:00:00 AM EDT [facility] ([facility]) [id number]"Psychotherapy 12/03/2019 12:00:00 AM EDT [facility] ([facility]) [facility] Telemed Diag Eval no med 11/06/2019 12:00:00 AM EDT - 11/06/2019 12:00:00 AM EDT [facility] ([facility]) [facility] Telemed Diag Eval no med 11/06/2019 12:00:00 AM ED T [facility] ([facility]) Psychiatric Diagnostic Evaluation (Non-Medical) 08/02/2019 12:00:00 AM EST - 08/02/2019 12:00:00 AM EST [facility] ([facility]) Psychiatric Diagnostic Evaluation (Non-Medical) 2019 12:00:00 AM EST [facility] ([facility]) Psychiatric Diagnostic Evaluation (Non-Medical) 07/20/2019 12:00:00 AM EST - 07/20/2019 12:00:00 AM EST [facility] ([facility]) Psychiatric Diagnostic Evaluation (Non-Medical) 2019 12:00:00 AM EST [facility] ([facility]) Extended Individual Psychotherapy - 45 min 07/09/2019 12:00:00 AM EST - 07/09/2019 12:00:00 AM EST [facility] ([facility]) Extended Individual Psychotherapy - 45 min 0 12:00:00 AM EST [facility] ([facility]) Brief Emotional/Behav Assessment W/ Scoring Doc Per Standard Inst 05/29/2019 12:00:00 AM EST [facility] ([facility]) Results ID Date Data Source [id number] 06/28/2020 10:00:00 AM EST [facility] Name Value Range Interpretation Code Description Data Hailey rce(s) Supporting Document(s) SARS coronavirus 2 RNA Not Detected [facility] [place] This lab was ordered by [facility] and reported by [facility]. ID Date Data Source [id number] 06/11/2020 12:00:00 PM EST [facility] ([facility]) Name Value Range Interpretation Code Description Data Hailey rce(s) Supporting Document(s) TP Reflex HPV ASCUS Laboratory test result [facility] ([facility]) SPECIMEN PART------ A. Cervical, Endocervical, ThinPrep Pap (Program Instructor) CYTOLOGY HX-------- Date of Last Menstrual Period: N Other Information:Previous Normal Pap: 05/09/19 FINAL DIAGNOSIS---- INTERPRETATION: Negative for Intraepithelial Lesion or Malignancy. SPECIMEN ADEQUACY:Satisfactory for evaluation. Endocervical/transformation zone component present. TP Reflex HPV ASCUS Laboratory test result [facility] ([facility]) ID Date Data Source [id number] 12/19/2019 03:20:00 PM EDT [facility] ([facility]) Name Value Range Interpretation Code Description Data Hailey rce(s) Supporting Document(s) T Uptake 28 % 30-39 Below low normal [facility] ([facility]) Thyroxine (T4) 11.2 ug/dL 4.5-12.0 Normal (applies to non-numeric r esults) [facility] ([facility]) Free Thyroxine Index 3.1 % 1.3-4.8 Normal (applies to non-num ge results) [facility] ([facility]) Thyroid Stimulating Hormone 0.834 uIU/ML 0.358-3.740 Norm al (applies to non- numeric results) [facility] ([facility]) ID Date Data Source [id number] 12/19/2019 03:20:00 PM EDT [facility] ([facility]) Name Value Range Interpretation Code Description Data Hailey rce(s) Supporting Document(s) Magnesium [Mass/volume] in Serum or Plasma 2.2 mg/dL 1.8-2 .4 Normal (applies to non-numeric results) [facility] ([facility]) ID Date Data Source [id number] 12/19/2019 03:20:00 PM EDT [facility] ([facility]) Name Value Range Interpretation Code Description Data Hailey rce(s) Supporting Document(s) Glucose, Fasting 87 mg/dL 70-100 Normal (applies to non-numeric results) [facility] ([facility]) Blood Urea Nitrogen 15 mg/dL 7-18 Normal (applies to non-nume aurea results) [facility] ([facility]) Glomerular Filtration Rate Laboratory test result Normal (applies to non- numeric results) [facility]) <content>Units are mL/min/1.73 m2</content>
<content></content>
<content>Chronic Kidney Disease Staging per NKF:</content>
<content></content>
<content>Stage I & II GFR >=60 Normal to Mildly Decreased</content>
<content>Stage III GFR 30- 59 Moderately Decreased</content>
<content>Stage IV GFR 15-29 Severely Decreased</content>
<content>Stage V GFR <15 Very Little GFR Left</content>
<content>ESRD GFR <15 on DIRECTOR EXPERIMENTAL MEDICINE</content>
<content></content> Creatinine For GFR 0.75 mg/dL 0.55-1.30 Normal (applies to non -numeric results) [facility] ([facility]) Sodium Level 142 meq/L 136-145 Normal (applies to non-numeric res ults) [facility] ([facility]) Potassium Serum 4.2 meq/L 3.5-5.1 Normal (applies to non-numeric results) [facility] ([facility]) Carbon Dioxide Level 27 meq/L 21-32 Normal (applies to non-num ge results) [facility] ([facility]) Chloride Level 110 meq/L 98-107 Above high normal [facility] ([facility]) Anion Gap 5 meq/L 8-16 Below low normal [facility] ( [facility]) Calcium Level 8.7 mg/dL 8.5-10.1 Normal (applies to non-numeric re sults) [facility] ([facility]) ID Date Data Source [id number] 12/19/2019 03:20:00 PM EDT [facility] ([facility]) Name Value Range Interpretation Code Description Data Hailey rce(s) Supporting Document(s) Fibrin D-dimer FEU [Mass/volume] in Platelet poor plasma 290.07 ng/mL Normal (applies to non-numeric results) [facility] ([facility]) ID Date Data Source [id number] 12/19/2019 03:20:00 PM EDT [facility] ([facility]) Name Value Range Interpretation Code Description Data Hailey rce(s) Supporting Document(s) Red Blood Count 4.40 10 4.00-5.40 Normal (applies to non-numeric results) [facility] ([facility]) White Blood Count 4.5 10 4.0-10.0 Normal (applies to non-numeri c results) [facility] ([facility]) Hemoglobin 13.8 g/dL 12.0-15.5 Normal (applies to non-numeric resul ts) [facility] ([facility]) Mean Corpuscular Volume 93.4 fl 80.0-96.0 Normal ( applies to non-numeric results) [facility] ([facility]) Hematocrit 41.1 % 36.0-47.0 Normal (applies to non-numeric resul ts) [facility] ([facility]) Mean Corpuscular HGB Conc 33.6 g/dL 32.0-36.5 Normal (applies to non-numeric results) [facility] ([facility]) Red Cell Distribution Width 12.8 % 11.5-14.5 Norm al (applies to non-numeric results) [facility] ([facility]) Mean Corpuscular Hemoglobin 31.4 pg 27.0-33.0 Norm al (applies to non-numeric results) [facility] ([facility]) Lymph % 33.4 % 24.0-44.0 Normal (applies to non-numeric resul ts) [facility] ([facility]) Platelet Count, Automated 240 10 150-450 Normal (applies to non-numeric results) [facility] ([facility]) Neutrophils % 54.9 % 36.0-66.0 Normal (applies to non-numeric re sults) [facility] ([facility]) Eos % 5.2 % 0.0-3.0 Above high normal [facility] ([facility]) Baso % 1.1 % 0.0-1.0 Above high normal [facility] ([facility]) Morris % 5.2 % 0.0-5.0 Above high normal [facility] ([facility]) Neutrophils # 2.5 10 1.5-8.5 Normal (applies to non-numeric re sults) [facility] ([facility]) Nucleated Red Blood Cell % 0.0 % 0-0 Normal (applies to n on-numeric results) [facility] ([facility]) Immature Granulocyte % 0.2 % 0-3.0 Normal (applies to non-n umeric results) [facility] ([facility]) Eos # 0.2 10 0.0-0.5 Normal (applies to non-numeric resul ts) [facility] ([facility]) Morris # 0.2 10 0.0-0.8 Normal (applies to non-numeric resul ts) [facility] ([facility]) Lymph # 1.5 10 1.5-5.0 Normal (applies to non-numeric resul ts) [facility] ([facility]) Baso # 0.1 10 0.0-0.2 Normal (applies to non-numeric resul ts) [facility] ([facility]) ID Date Data Source [id number] 11/12/2019 04:05:00 PM EDT [facility] ([facility]) Name Value Range Interpretation Code Description Data Hailey rce(s) Supporting Document(s) US Renal Laboratory test result [facility] ([facility]) ID Date Data Source [id number] 11/12/2019 03:31:00 PM EDT [facility] ([facility]) Name Value Range Interpretation Code Description Data Hailey rce(s) Supporting Document(s) US Hepatic Laboratory test result [facility] ([facility]) ID Date Data Source [id number] 11/03/2019 09:27:00 AM EDT [facility] Name Value Range Interpretation Code Description Data Hailey rce(s) Supporting Document(s) Color, Urine Laboratory test result MEDE NT ([facility]) PH,Urine 5.0 units 5.0-9.0 [facility] Appearance, Urine Laboratory test result [facility] ([facility]) Specific [place]en Urine Auto 1.018 1.002-1.035 [facility] ([facility]) Protein, Urine Auto Laboratory test result [facility] ([facility]) Glucose, Urine (Ua) Auto Laboratory test result [facility] ([facility]) Bilirubin, Urine Auto Laboratory test result [facility] ([facility]) Urobilinogen, Urine Auto 0.2 mg/dL 0.0-2.0 [facility] ([facility]) Ketone, Urine Auto Laboratory test result [facility] ([facility]) Leukocyte Esterase, Urine Auto Laboratory test result [facility] ([facility]) Nitrite, Urine Auto Laboratory test result [facility] ([facility]) Blood, Urine Blood Laboratory test result [facility] ([facility]) RBC, Urine Auto 5 /HPF 0-3 [facility] ([facility]) WBC, Urine Auto 1 /HPF 0-3 [facility] ([facility]) Squamous Epithelial Cell Ur AU 1 /HPF 0-6 [facility] ([facility]) Bacteria, Urine Auto Laboratory test result [facility] ([facility]) Hyaline Cast, Urine Auto 0 /LPF 0-1 MEDEN T ([facility]) Mucus, Urine Laboratory test result MEDE NT ([facility]) ID Date Data Source [id number] 11/03/2019 09:27:00 AM EDT [facility] ([facility]) Name Value Range Interpretation Code Description Data Hailey rce(s) Supporting Document(s) Color, Urine Laboratory test result Normal (applies to non -numeric results) [facility] ([facility]) Appearance, Urine Laboratory test result Normal (applies to non-numeric results) [facility] ([facility]) Protein, Urine Auto Laboratory test result Lilia l (applies to non-numeric results) [facility] ([facility]) Specific [place] Urine Auto 1.018 1.002-1.035 Norm al (applies to non-numeric results) [facility] ([facility]) PH,Urine 5.0 units 5.0-9.0 Normal (applies to non-numeric resul ts) [facility] ([facility]) Urobilinogen, Urine Auto 0.2 mg/dL 0.0-2.0 Normal (applies to non-numeric results) [facility] ([facility]) Ketone, Urine Auto Laboratory test result Normal (applies to non-numeric results) [facility] ([facility]) Glucose, Urine (Ua) Auto Laboratory test result Normal (applies to non-numeric results) [facility] ([facility]) Leukocyte Esterase, Urine Auto Laboratory test result Normal (applies to non- numeric results) [facility] ([facility]) Nitrite, Urine Auto Laboratory test result Lilia l (applies to non-numeric results) [facility] ([facility]) Bilirubin, Urine Auto Laboratory test result Nor mal (applies to non-numeric results) [facility] ([facility]) WBC, Urine Auto 1 /HPF 0-3 Normal (applies to non-numeric results) [facility] ([facility]) RBC, Urine Auto 5 /HPF 0-3 Above high normal [facility] ([facility]) Blood, Urine Blood Laboratory test result Above high lilia l [facility] ([facility]) Squamous Epithelial Cell Ur AU 1 /HPF 0-6 N ormal (applies to non-numeric results) [facility] ([facility]) Bacteria, Urine Auto Laboratory test result Norm al (applies to non-numeric results) [facility] ([facility]) Mucus, Urine Laboratory test result Normal (applies to non -numeric results) [facility] ([facility]) Hyaline Cast, Urine Auto 0 /LPF 0-1 Normal (applies to non -numeric results) [facility] ([facility]) ID Date Data Source [id number] 11/03/2019 09:24:00 AM EDT [facility] ([facility]) Name Value Range Interpretation Code Description Data Hailey rce(s) Supporting Document(s) White Blood Count 4.1 10 4.0-10.0 [facility] ([facility]) Hematocrit 41.6 % 36.0-47.0 [facility] ([facility]) Red Blood Count 4.38 10 4.00-5.40 [facility] ([facility]) Hemoglobin 14.0 g/dL 12.0-15.5 [facility] ([facility]) Mean Corpuscular Volume 95.0 fl 80.0-96.0 M [facility]ENT ([facility]) Red Cell Distribution Width 13.0 % 11.5-14.5 [facility] ([facility]) Mean Corpuscular HGB Conc 33.7 g/dL 32.0-36.5 [facility] ([facility]) Mean Corpuscular Hemoglobin 32.0 pg 27.0-33.0 [facility] ([facility]) Neutrophils % 59.0 % 36.0-66.0 [facility] ([facility]) Lymphocytes/100 leukocytes in Blood by Automated count 28.1 % 24. 0-44.0 [facility] ([facility]) Platelet Count, Automated 249 10 150-450 [facility] ([facility]) Baso % 1.0 % 0.0-1.0 [facility] ([facility]) Morris % 4.4 % 0.0-5.0 [facility] [place] Immature Granulocyte % 0.2 % 0-3.0 [facility]) Eos % 7.3 % 0.0-3.0 [facility] Neutrophils # 2.4 10 1.5-8.5 [facility] Nucleated Red Blood Cell % 0.0 % 0-0 [facility] ([facility]) Lymph # 1.2 10 1.5-5.0 [facility] [place] Eos # 0.3 10 0.0-0.5 [facility] [place] Baso # 0.0 10 0.0-0.2 [facility] [place] Morris # 0.2 10 0.0-0.8 [facility] [place] ID Date Data Source [id number] 11/03/2019 09:24:00 AM EDT [facility] ([facility]) Name Value Range Interpretation Code Description Data Hailey rce(s) Supporting Document(s) Free T4 0.99 ng/dL 0.76-1.46 [facility] ([facility]) Thyroid Stimulating Hormone 0.961 uIU/ML 0.358-3.740 [facility] ([facility]) ID Date Data Source [id number] 11/03/2019 09:24:00 AM EDT [facility] ([facility]) Name Value Range Interpretation Code Description Data Hailey rce(s) Supporting Document(s) Triglycerides Level 72 mg/dL [facility] ([facility]) Cholesterol in LDL [Mass/volume] in Serum or Plasma by calculati on 104 mg/dL [facility] ([facility]) Cholesterol Level 177 mg/dL [facility] HDL Cholesterol 59 mg/dL [facility] Non-HDL-C 118 mg/dL [facility] Cholesterol Risk Ratio 3.000 [facility] ([facility]) ID Date Data Source [id number] 11/03/2019 09:24:00 AM EDT [facility] Name Value Range Interpretation Code Description Data Hailey rce(s) Supporting Document(s) Glucose, Fasting 86 mg/dL 70-100 [facility] ([facility]) Creatinine For GFR 0.80 mg/dL 0.55-1.30 [facility] ([facility]) Glomerular Filtration Rate Laboratory test result [facility] ([facility]) <content>Units are mL/min/1.73 m2</content>
<content></content>
<content>Chronic Kidney Disease Staging per NKF:</content>
<content></content>
<content>Stage I & II GFR >=60 Normal to Mildly Decreased</content>
<content>Stage III GFR 30- 59 Moderately Decreased</content>
<content>Stage IV GFR 15-29 Severely Decreased</content>
<content>Stage V GFR <15 Very Little GFR Left</content>
<content>ESRD GFR <15 on DIRECTOR EXPERIMENTAL MEDICINE</content>
<content></content>
<content></content> Blood Urea Nitrogen 11 mg/dL 7-18 [facility] ([facility]) Potassium Serum 4.5 meq/L 3.5-5.1 [facility] ([facility]) Chloride Level 109 meq/L 98-107 [facility] ([facility]) Sodium Level 142 meq/L 136-145 [facility] ([facility]) Carbon Dioxide Level 27 meq/L 21-32 [facility] ([facility]) Calcium Level 8.5 mg/dL 8.5-10.1 [facility] ([facility]) Anion gap in Serum or Plasma 6 meq/L 8-16 [facility] ([facility]) Aspartate aminotransferase [Enzymatic activity/volume] in Serum or Plasma 13 U/L 7-37 [facility] ([facility]) Bilirubin,Total 0.5 mg/dL 0.2-1.0 [facility] ([facility]) Alanine aminotransferase [Enzymatic activity/volume] in Seru m or Plasma 18 U/L 12-78 [facility] ([facility]) Alkaline phosphatase [Enzymatic activity/volume] in Serum or Plasma 48 U/L 45-117 [facility] ([facility]) Total Protein 6.4 GM/DL 6.4-8.2 [facility] ([facility]) Albumin/Globulin Ratio 1.1 1.2-2.2 [facility] (Cardiology [facility]) Albumin 3.3 GM/DL 3.2-5.2 [facility] ID Date Data Source [id number] 11/03/2019 09:24:00 AM EDT [facility]) Name Value Range Interpretation Code Description Data Hailey rce(s) Supporting Document(s) White Blood Count 4.1 10 4.0-10.0 Normal (applies to non-numeri c results) [facility] ([facility]) Red Blood Count 4.38 10 4.00-5.40 Normal (applies to non-numeric results) [facility] ([facility]) Hematocrit 41.6 % 36.0-47.0 Normal (applies to non-numeric resul ts) [facility] ([facility]) Hemoglobin 14.0 g/dL 12.0-15.5 Normal (applies to non-numeric resul ts) [facility] ([facility]) Mean Corpuscular Hemoglobin 32.0 pg 27.0-33.0 Norm al (applies to non-numeric results) [facility] ([facility]) Mean Corpuscular Volume 95.0 fl 80.0-96.0 Normal ( applies to non-numeric results) [facility] ([facility]) Mean Corpuscular HGB Conc 33.7 g/dL 32.0-36.5 Normal (applies to non-numeric results) [facility] ([facility]) Platelet Count, Automated 249 10 150-450 Normal (applies to non-numeric results) [facility] ([facility]) Neutrophils % 59.0 % 36.0-66.0 Normal (applies to non-numeric re sults) [facility] ([facility]) Red Cell Distribution Width 13.0 % 11.5-14.5 Norm al (applies to non-numeric results) [facility] ([facility]) Eos % 7.3 % 0.0-3.0 Above high normal [facility] ([facility]) Morris % 4.4 % 0.0-5.0 Normal (applies to non-numeric resul ts) [facility] ([facility]) Lymph % 28.1 % 24.0-44.0 Normal (applies to non-numeric resul ts) [facility] ([facility]) Baso % 1.0 % 0.0-1.0 Normal (applies to non-numeric resul ts) [facility] ([facility]) Immature Granulocyte % 0.2 % 0-3.0 Normal (applies to non-n umeric results) [facility] ([facility]) Nucleated Red Blood Cell % 0.0 % 0-0 Normal (applies to n on-numeric results) [facility] ([facility]) Morris # 0.2 10 0.0-0.8 Normal (applies to non-numeric resul ts) [facility] ([facility]) Lymph # 1.2 10 1.5-5.0 Below low normal [facility] ( [facility]) Neutrophils # 2.4 10 1.5-8.5 Normal (applies to non-numeric re sults) [facility] ([facility]) Baso # 0.0 10 0.0-0.2 Normal (applies to non-numeric resul ts) [facility] ([facility]) Eos # 0.3 10 0.0-0.5 Normal (applies to non-numeric resul ts) [facility] ([facility]) ID Date Data Source [id number] 11/03/2019 09:24:00 AM EDT [facility] ([facility]) Name Value Range Interpretation Code Description Data Hailey rce(s) Supporting Document(s) Free T4 0.99 ng/dL 0.76-1.46 Normal (applies to non-numeric resul ts) [facility] ([facility]) Thyroid Stimulating Hormone 0.961 uIU/ML 0.358-3.740 Norm al (applies to non- numeric results) [facility] ([facility]) ID Date Data Source [id number] 11/03/2019 09:24:00 AM EDT [facility] ([facility]) Name Value Range Interpretation Code Description Data Hailey rce(s) Supporting Document(s) Triglycerides Level 72 mg/dL Normal (applies to non-nume aurea results) [facility] ([facility]) Cholesterol Level 177 mg/dL Normal (applies to non-numeri c results) [facility] ([facility]) HDL Cholesterol 59 mg/dL Normal (applies to non-numeric results) [facility] ([facility]) LDL Cholesterol 104 mg/dL Above high normal [facility] ([facility]) Non-HDL-C 118 mg/dL Normal (applies to non-numeric resul ts) [facility] ([facility]) Cholesterol Risk Ratio 3.000 Normal (applies to non-n umeric results) [facility]) ID Date Data Source [id number] 11/03/2019 09:24:00 AM EDT [facility] ([facility]) Name Value Range Interpretation Code Description Data Hailey rce(s) Supporting Document(s) Glucose, Fasting 86 mg/dL 70-100 Normal (applies to non-numeric results) [facility] ([facility]) Glomerular Filtration Rate Laboratory test result Normal (applies to non- numeric results) [facility]) <content>Units are mL/min/1.73 m2</content>
<content></content>
<content>Chronic Kidney Disease Staging per NKF:</content>
<content></content>
<content>Stage I & II GFR >=60 Normal to Mildly Decreased</content>
<content>Stage III GFR 30-59 Moderately Decreased</content>
<content>Stage IV GFR 15-29 Severely Decreased</content>
<content>Stage V GFR <15 Very Little GFR Left</content>
<content>ESRD GFR <15 on DIRECTOR EXPERIMENTAL MEDICINE</content>
<content></content> Creatinine For GFR 0.80 mg/dL 0.55-1.30 Normal (applies to non -numeric results) [facility] ([facility]) Blood Urea Nitrogen 11 mg/dL 7-18 Normal (applies to non-nume aurea results) [facility] ([facility]) Potassium Serum 4.5 meq/L 3.5-5.1 Normal (applies to non-numeric results) [facility] ([facility]) Chloride Level 109 meq/L 98-107 Above high normal [facility] ([facility]) Sodium Level 142 meq/L 136-145 Normal (applies to non-numeric res ults) [facility] ([facility]) Calcium Level 8.5 mg/dL 8.5-10.1 Normal (applies to non-numeric re sults) [facility] ([facility]) Carbon Dioxide Level 27 meq/L 21-32 Normal (applies to non-num ge results) [facility] ([facility]) Anion Gap 6 meq/L 8-16 Below low normal [facility] ( [facility]) Ast/Sgot 13 U/L 7-37 Normal (applies to non-numeric resul ts) [facility] ([facility]) Alkaline Phosphatase 48 U/L 45-117 Normal (applies to non-num ge results) [facility] ([facility]) Alt/SGPT 18 U/L 12-78 Normal (applies to non-numeric resul ts) [facility] ([facility]) Albumin 3.3 GM/DL 3.2-5.2 Normal (applies to non-numeric resul ts) [facility] ([facility]) Total Protein 6.4 GM/DL 6.4-8.2 Normal (applies to non-numeric re sults) [facility] ([facility]) Bilirubin,Total 0.5 mg/dL 0.2-1.0 Normal (applies to non-numeric results) [facility] ([facility]) Albumin/Globulin Ratio 1.1 1.2-2.2 Below low normal [facility] ([facility]) Procedure Social History Code Duration Value Status Description Data Source(s ) Smoking 06/11/2020 12:00:00 AM EST Patient is a former smoker completed Patient is a former smoker [facility] ([facility]) Smoking 05/07/2020 12:00:00 AM EST Former Smoker completed Former Smoker eCW1 ([facility]) Smoking 05/07/2020 12:00:00 AM EST Former Smoker completed Former Smoker eCW1 ([facility]) Smoking 05/07/2020 12:00:00 AM EST Former Smoker completed Former Smoker eCW1 ([facility]) Smoking 03/14/2020 12:00:00 AM EDT Unknown if ever smoked comp leted Unknown if ever smoked [facility] ([facility]) Smoking 02/12/2020 12:00:00 AM EDT Unknown if ever smoked comp leted Unknown if ever smoked [facility] ([facility]) Smoking 01/22/2020 12:00:00 AM EDT Patient has never smoked co mpleted Patient has never smoked [facility] ([facility] ) Smoking 01/14/2020 12:00:00 AM EDT Patient has never smoked co mpleted Patient has never smoked [facility] ([facility]) Smoking 12/11/2019 12:00:00 AM EDT Unknown if ever smoked comp leted Unknown if ever smoked [facility] ([facility]) Smoking 12/03/2019 12:00:00 AM EDT Unknown if ever smoked comp leted Unknown if ever smoked [facility] ([facility]) Smoking 11/06/2019 12:00:00 AM EDT Unknown if ever smoked comp leted Unknown if ever smoked [facility] ([facility]) Smoking 08/02/2019 12:00:00 AM EST Unknown if ever smoked comp leted Unknown if ever smoked [facility] ([facility]) Smoking 07/20/2019 12:00:00 AM EST Unknown if ever smoked comp leted Unknown if ever smoked [facility] ([facility]) Smoking 07/09/2019 12:00:00 AM EST Unknown if ever smoked comp leted Unknown if ever smoked [facility] ([facility]) Vital Signs ID Date Data Source UNK Name Value Range Interpretation Code Description Data Source(s) Body surface area Derived from formula 1.72 m2 1.72 m2 [facility] ([facility]) Body mass index (BMI) [Ratio] 28.7 kg/m2 28.7 k g/m2 [facility] ([facility]) Body weight 157.00 [lb_av] 157.00 [lb_av] MED[facility] T ([facility]) Body height 62 [in_i] 62 [in_i] [facility] ([facility]) 5'2" Diastolic blood pressure 88 mm[Hg] 88 mm[Hg] [facility] ([facility]) Systolic blood pressure 126 mm[Hg] 126 mm[Hg] M EDENT ([facility]) Diastolic blood pressure 84 mm[Hg] 84 mm[Hg] eCW1 ([facility]) Systolic blood pressure 134 mm[Hg] 134 mm[Hg] e CW1 ([facility]) Body mass index (BMI) [Ratio] 27.99 kg/m2 27.99 kg/m2 eCW1 ([facility]) Body height 63 [in_i] 63 [in_i] eCW1 ([facility]) Body weight 158 [lb_av] 158 [lb_av] eCW1 ([facility]) Diastolic blood pressure--supine 82 mm[Hg] 82 mm[Hg] [facility] ([facility]) Systolic blood pressure--supine 124 mm[Hg] 124 mm[Hg] [facility] ([facility]) Diastolic blood pressure--sitting 84 mm[Hg] 84 mm[Hg] [facility] ([facility]) Medium cuff, Ra Systolic blood pressure--sitting 126 mm[Hg] 126 mm[Hg] [facility] ([facility]) Medium cuff, Ra Respiratory rate 16 /min 16 /min [facility] ( [facility]) Heart rate 84 /min 84 /min [facility] ([facility]) regular Body mass index (BMI) [Ratio] 28.3 kg/m2 28.3 k g/m2 [facility] ([facility]) Body height 62 [in_i] 62 [in_i] [facility] ([facility]) 5'2" Body weight 155.00 [lb_av] 155.00 [lb_av] MEDEN T ([facility]) Body mass index (BMI) [Ratio] 28.3 kg/m2 28.3 k g/m2 [facility] ([facility]) Diastolic blood pressure 83 mm[Hg] 83 mm[Hg] [facility] ([facility]) Systolic blood pressure 128 mm[Hg] 128 mm[Hg] M EDENT ([facility]) Respiratory rate 18 /min 18 /min [facility] ( [facility]) Heart rate 90 /min 90 /min [facility] ([facility] Body height 62 [in_i] 62 [in_i] [facility] ([facility]) 5'2" Body weight 154.50 [lb_av] 154.50 [lb_av] MEDEN T ([facility]) Diastolic blood pressure--supine 88 mm[Hg] 88 mm[Hg] [facility] ([facility]) Ra Systolic blood pressure--supine 138 mm[Hg] 138 mm[Hg] [facility] ([facility]) Ra Diastolic blood pressure--sitting 85 mm[Hg] 85 mm[Hg] [facility] ([facility]) Medium cuff, Ra; 128/86 LA Systolic blood pressure--sitting 129 mm[Hg] 129 mm[Hg] [facility] ([facility]) Medium cuff, Ra; 128/86 LA Respiratory rate 16 /min 16 /min [facility] ( [facility]) Heart rate 78 /min 78 /min [facility] ([facility]) regular Body mass index (BMI) [Ratio] 27.6 kg/m2 27.6 k g/m2 [facility] ([facility]) Body height 62 [in_i] 62 [in_i] [facility] ([facility]) 5'2" Body weight 151.00 [lb_av] 151.00 [lb_av] MEDEN T ([facility]) Body weight 69.401 kg 69.401 kg [facility] ([facility]) Body weight 153.00 [lb_av] 153.00 [lb_av] MEDEN T ([facility]) Oxygen saturation in Arterial blood by Pulse oximetry 97 % 97 % [facility] ([facility]) Respiratory rate 18 /min 18 /min [facility] ( [facility]) Body temperature 98.8 [degF] 98.8 [degF] [facility] ([facility]) Heart rate 88 /min 88 /min [facility] ([facility]) Diastolic blood pressure 86 mm[Hg] 86 mm[Hg] [facility] Systolic blood pressure 132 mm[Hg] 132 mm[Hg] M EDENT ([facility]) Body surface area 1.69 m2 1.69 m2 [facility] ([facility]) Body mass index (BMI) [Ratio] 27.4 kg/m2 27.4 k g/m2 [facility] ([facility]) Body height 62 [in_i] 62 [in_i] [facility] ([facility]) 5'2" Body weight 68.040 kg 68.040 kg [facility] ([facility]) Body weight 150.00 [lb_av] 150.00 [lb_av] MEDEN T ([facility]) Oxygen saturation in Arterial blood by Pulse oximetry 97 % 97 % [facility] ([facility]) Respiratory rate 18 /min 18 /min [facility] ( [facility]) Body temperature 97.8 [degF] 97.8 [degF] [facility] Heart rate 91 /min 91 /min [facility] ([facility]) Diastolic blood pressure 64 mm[Hg] 64 mm[Hg] [facility] Systolic blood pressure 122 mm[Hg] 122 mm[Hg] M EDENT ([facility]) Body surface area 1.69 m2 1.69 m2 [facility] ([facility]) Body mass index (BMI) [Ratio] 27.2 kg/m2 27.2 k g/m2 [facility] Body height 62 [in_i] 62 [in_i] [facility] ([facility]) 5'2" Body weight 67.586 kg 67.586 kg [facility] ([facility]) Body weight 149.00 [lb_av] 149.00 [lb_av] MEDEN T ([facility]) Oxygen saturation in Arterial blood by Pulse oximetry 98 % 98 % [facility] ([facility]) Respiratory rate 18 /min 18 /min [facility] ( [facility]) Body temperature 97.8 [degF] 97.8 [degF] [facility] ([facility]) Heart rate 80 /min 80 /min [facility] ([facility]) Diastolic blood pressure 68 mm[Hg] 68 mm[Hg] [facility] ([facility]) Systolic blood pressure 132 mm[Hg] 132 mm[Hg] M EDENT ([facility]) Body surface area Derived from formula 1.69 m2 1.69 m2 [facility] ([facility]) Body mass index (BMI) [Ratio] 27.2 kg/m2 27.2 k g/m2 [facility] ([facility]) Body weight 149.00 [lb_av] 149.00 [lb_av] MED[facility] T ([facility]) Body height 62 [in_i] 62 [in_i] [facility] ([facility]) 5'2" Diastolic blood pressure 92 mm[Hg] 92 mm[Hg] [facility] ([facility]) Systolic blood pressure 138 mm[Hg] 138 mm[Hg] M EDENT ([facility]) Body surface area 1.69 m2 1.69 m2 [facility] ([facility]) Diastolic blood pressure 103 mm[Hg] 103 mm[Hg] eCW1 ([facility]) Systolic blood pressure 146 mm[Hg] 146 mm[Hg] e CW1 ([facility]) Body temperature 99.5 [degF] 99.5 [degF] eCW1 ( [facility]) Respiratory rate 14 /min 14 /min eCW1 ([facility]) Heart rate 90 /min 90 /min eCW1 ([facility]) Body mass index (BMI) [Ratio] 26.92 kg/m2 26.92 kg/m2 eCW1 ([facility]) Body height 63 [in_us] 63 [in_us] eCW1 ([facility]) Body weight Measured 152 [lb_av] 152 [lb_av] eC W1 ([facility]) Patient Treatment Plan of Care Planned Activity Planned Date Details Description Data Source (s) mometasone furoate 1 MG/ML Topical Cream 05/14/2020 12:00:00 AM EST eCW1 ([facility]) mometasone furoate 1 MG/ML Topical Cream 05/14/2020 12:00:00 AM EST eCW1 ([facility]) levocetirizine dihydrochloride 5 MG Oral Tablet 05/07/2020 12:00:00 AM EST eCW1 ([facility]) Pimecrolimus 10 MG/ML Topical Cream [Elidel] 05/07/2020 12:00:00 AM EST eCW1 ([facility]) hydroquinone 40 MG/ML Topical Cream 05/07/2020 12:00:00 AM EST eCW1 ([facility]) levocetirizine dihydrochloride 5 MG Oral Tablet 05/07/2020 12:00:00 AM EST eCW1 ([facility]) Pimecrolimus 10 MG/ML Topical Cream [Elidel] 05/07/2020 12:00:00 AM EST eCW1 ([facility]) hydroquinone 40 MG/ML Topical Cream 05/07/2020 12:00:00 AM EST eCW1 ([facility]) Pimecrolimus 10 MG/ML Topical Cream [Elidel] 05/07/2020 12:00:00 AM EST eCW1 ([facility]) levocetirizine dihydrochloride 5 MG Oral Tablet 05/07/2020 12:00:00 AM EST eCW1 ([facility]) hydroquinone 40 MG/ML Topical Cream 05/07/2020 12:00:00 AM EST eCW1 ([facility])
[2020-07-03] MEDS ORDERED: MEPERIDINE INJ 25 MG/ML VIAL (J2175) As Ordered ONE (14:02)
[2020-07-03] MEDS ORDERED: fentaNYL 100 MCG/2 ML INJECTION (J3010) IV PRN (14:15)
[2020-07-03] MEDS ORDERED: oxyCODONE 5MG TAB PO PRN (14:15)
[2020-07-03] MEDS ORDERED: LR 1,000 ML IV SCH ×2 (14:15)
[2020-07-03] MEDS ORDERED: ONDANSETRON 4MG/2ML VIAL IV PRN (14:15)
[2020-07-03] MEDS ORDERED: MEPERIDINE INJ 25 MG/ML VIAL (J2175) IV PRN (14:15)
[2020-07-03] MEDS ORDERED: IBUPROFEN 600MG TAB PO PRN (14:30)
[2020-07-03 15:20] VITALS: BP 135/87
--- NOTE | 2020-07-04 08:14 | RO ---
OPERATIVE NOTE DATE OF OPERATION: 07/03/2020 PREOPERATIVE DIAGNOSIS: Painful anterior vaginal wall lesion. POSTOPERATIVE DIAGNOSIS: Painful anterior vaginal wall lesion with apparent mucous inclusion cyst. PROCEDURE: Removal of right anterior vaginal wall lesion. SURGEON: Aubree Narayanan MD NATUROPATHIC ONCOLOGY PROVIDER: ANESTHESIA: LMA. BRIEF DESCRIPTION OF PROCEDURE/FINDINGS: Lizbeth was brought to the operating room where sufficient LMA anesthesia was induced. She was prepped, draped and positioned in the usual sterile fashion and the cyst was located. The bladder was emptied and with the metal catheter in the urethra we could move the urethra without any movement of the cyst. So under anesthesia that separation of the two was apparent despite their close proximity, the cyst was only about a centimeter to the right of midline and so it certainly was close but did not appear under anesthesia to be attached. We then grasped the vagina caudad to the lesion and then carefully incised over the top of it cephalad to caudad. It had distended the vaginal mucosa and when we opened the lesion mucous contents were extruded. After clearing those away we could see that the cyst did not extend very much further and so we took the edge of the cyst wall and examined it with an Allis and it was really quite, quite thin so decision was made to go ahead and take the lateral vaginal tissue and cyst tissue together and then leaving the vaginal wall peel that deeper base of the cyst wall off the medial portion, some of that did not peel free but since it is so close to the urethra we did not want to just be digging around there and we had the majority of the cyst removed and we went ahead and sent that for pathology and rest of what we could of the small bits of the wall remaining and broke them up. I did a deep layer closure of 3-0 Vicryl and skin closure of 4-0. Again, there was plenty of stretching of the tissues by the cyst itself so I even with removing some of the vagina epithelium along with the cyst wall we did not have any trouble having tension-free closure and we had good hemostasis. Before closing that skin we again went ahead and placed metal catheter again and we could again see that the urethra was not involved in that closure and it being that close to the introitus we did not feel the need for cystourethroscopy fortunately. We closed the skin with 4-0 Vicryl with good approximation and hemostasis achieved. The procedure was then ended. ESTIMATED BLOOD LOSS: Maybe 5 mL. FLUID REPLACEMENT: Crystalloid. COMPLICATIONS: None. CONDITION AND DISPOSITION: Lizbeth tolerated the procedure well and was recovering in the recovery room in good condition.
== END 2020-07-03 15:20 | disposition home or self-care (01) ==
LOC: M SDC 11:49
PROVIDERS: ATTEND Obstetrics & Gynecology
DX: Q51.6 Embryonic cyst of cervix (principal); G43.909 Migraine, unspecified, not intractable, without status migrainosus; Z79.899 Other long term (current) drug therapy; Z88.0 Allergy status to penicillin; Z88.1 Allergy status to other antibiotic agents; Z88.2 Allergy status to sulfonamides; Z88.5 Allergy status to narcotic agent; Z88.8 Allergy status to other drugs, medicaments and biological substances
CPT/HCPCS: 11420; 81025; 88305; J0131; J1100; J1885; J2175; J2250; J2405; J3010

== ENCOUNTER → 2020-07-14 | Outpatient (CLI) | payer SELFPAY ==
[~2020-07-14] MED LIST changes: -ACETAMINOPHEN 1000MG 100ML IV BTL (OFIRMEV) (J0131 PER 10MG) As Ordered ONE; -KETOROLAC 60MG 2ML VIAL As Ordered ONE; -LIDOCAINE 2% 100MG/5ML SDV (FOR ANES.) As Ordered ONE; -LR 1,000 ML IV ONE; -MIDAZOLAM INJ 2MG/2ML VIAL (J2250 PER 1MG) As Ordered ONE; -ONDANSETRON 4MG/2ML VIAL As Ordered ONE; -dexameTHASONE 4 MG/ML 1ML VIAL (J1100 PER 1MG) As Ordered ONE; -fentaNYL 100 MCG/2 ML INJECTION (J3010) As Ordered ONE; -propofoL 200 MG/20 ML VIAL As Ordered ONE
== END ==
LOC: M LABSMTC 11:12
PROVIDERS: ATTEND Pediatrics
DX: Z20.822 Contact with and (suspected) exposure to COVID-19 (principal)

== ENCOUNTER → 2020-11-11 | Outpatient (CLI) | payer OTHER ==
[2020-11-11 11:16] LABS: BASO % 1.2 % (0.0-1.0); EOS # 0.3 10^3/uL (0.0-0.5); EOS % 7.6 % (0.0-3.0); HEMATOCRIT 44.8 % (36.0-47.0); HEMOGLOBIN 14.4 g/dl (12.0-15.5); LYMPH # 1.2 10^3/uL (1.5-5.0); LYMPH % 34.7 % (24.0-44.0); MEAN CORPUSCULAR HEMOGLOBIN 30.9 pg (27.0-33.0); MEAN CORPUSCULAR HGB CONC 32.1 g/dl (32.0-36.5); MEAN CORPUSCULAR VOLUME 96.1 fl (80.0-96.0); MONO # 0.1 10^3/uL (0.0-0.8); MONO % 4.1 % (2.0-8.0); NEUTROPHILS # 1.8 10^3/uL (1.5-8.5); NEUTROPHILS % 52.4 % (36.0-66.0); PLATELET COUNT, AUTOMATED 222 10^3/uL (150-450); RED BLOOD COUNT 4.66 10^6/uL (4.00-5.40); WHITE BLOOD COUNT 3.4 10^3/uL (4.0-10.0)
[2020-11-11 11:20] LABS: APPEARANCE, URINE CLEAR (CLEAR); BACTERIA, URINE AUTO NEGATIVE (NEGATIVE); BILIRUBIN, URINE AUTO NEGATIVE (NEGATIVE); BLOOD, URINE BLOOD 2+ (NEGATIVE); COLOR, URINE YELLOW (YELLOW); GLUCOSE, URINE (UA) AUTO NEGATIVE (NEGATIVE); KETONE, URINE AUTO NEGATIVE (NEGATIVE); LEUKOCYTE ESTERASE, URINE AUTO TRACE (NEGATIVE); MUCUS, URINE SMALL (NEGATIVE); NITRITE, URINE AUTO NEGATIVE (NEGATIVE); PROTEIN, URINE AUTO NEGATIVE (NEGATIVE); RBC, URINE AUTO 3 /HPF (0-3); SPECIFIC GRAVITY URINE AUTO 1.021 (1.002-1.035); SQUAMOUS EPITHELIAL CELL UR AU 1 /HPF (0-6); UROBILINOGEN, URINE AUTO 0.2 mg/dL (0.0-2.0); WBC, URINE AUTO 5 /HPF (0-3)
[2020-11-11 12:04] LABS: ALBUMIN 3.3 GM/DL (3.2-5.2); ALT/SGPT 16 U/L (12-78); BILIRUBIN,TOTAL 0.6 MG/DL (0.2-1.0); BLOOD UREA NITROGEN 13 MG/DL (7-18); CALCIUM LEVEL 8.7 MG/DL (8.5-10.1); CARBON DIOXIDE LEVEL 27 MEQ/L (21-32); CHLORIDE LEVEL 108 MEQ/L (98-107); CHOLESTEROL LEVEL 176 MG/DL (<200); CHOLESTEROL RISK RATIO 2.793 (<5); CREATININE FOR GFR 0.63 MG/DL (0.55-1.30); FREE T4 0.87 NG/DL (0.76-1.46); GLOMERULAR FILTRATION RATE > 60.0 (>58); GLUCOSE, FASTING 88 MG/DL (70-100); HDL CHOLESTEROL 63 MG/DL (>40); LDL CHOLESTEROL 98 MG/DL (<100); NON-HDL-C 113 MG/DL; POTASSIUM SERUM 4.4 MEQ/L (3.5-5.1); SODIUM LEVEL 141 MEQ/L (136-145); TOTAL PROTEIN 6.4 GM/DL (6.4-8.2); TRIGLYCERIDES LEVEL 75 MG/DL (<150)
== END ==
LOC: M LAB 09:58
PROVIDERS: ATTEND Family Medicine
DX: D72.819 Decreased white blood cell count, unspecified (principal)

== ENCOUNTER → 2021-01-02 | Outpatient (CLI) | payer OTHER ==
--- NOTE | 2021-01-02 11:12 | REP ---
INDICATION: CYST OF KIDNEY, CYST OF LIVER. COMPARISON: Comparison study November 27, 2019.. TECHNIQUE: Complete abdominal sonography is performed. FINDINGS: Scanning through the right upper quadrant of the abdomen demonstrates a normal sized and walled gallbladder without evidence of stone or polyp. Common bile duct measures 0.5 cm in greatest diameter is normal. There is a 2.8 x 1.8 cm hyperechoic focus in the right lobe of the liver consistent with a hemangioma. This is unchanged. There is a 1.7 cm cyst in the right lobe of the liver as well. No pancreatic abnormality is seen. Scanning in the left upper quadrant demonstrates a normal size homogeneous spleen, 9.3 cm in greatest diameter. Renal cortical echogenicity pattern is normal and contours are smooth bilaterally. Right renal dimensions are 10.1 x 5.9 x 4.3 cm. The left kidney measures 10.5 x 4.9 x 5.4 cm. There is a left renal cyst measuring 0.9 cm in greatest diameter. Superior to the right kidney there is a 1.2 x 0.9 x 0.9 cm hypoechoic area which could be an adrenal nodule or peripheral renal cyst on the right. This was not previously observed by ultrasound. However, review of CT images from April 22, 2017 shows a focal low-density nodular area in the right adrenal which I believe is unchanged.. Normal caliber aorta is seen. IMPRESSION: Stable 9 mm cyst left kidney, 2.8 cm hemangioma of the right lobe of the liver, 1.7 cm cyst right lobe of the liver. 1.2 cm right adrenal adenoma. <Electronically signed by Js Hernández > 01/02/21 [id number]
== END ==
LOC: M RAD 09:16
PROVIDERS: ATTEND Family Medicine
DX: K76.89 Other specified diseases of liver (principal); N28.1 Cyst of kidney, acquired

== ENCOUNTER → 2021-01-05 | Outpatient (CLI) | payer OTHER | LOC: M WHC 11:57 | PROVIDERS: ATTEND Obstetrics & Gynecology | DX: Z12.31 Encounter for screening mammogram for malignant neoplasm of breast (principal) ==

== ENCOUNTER → 2021-05-15 | Outpatient (REF) | payer OTHER ==
[2021-05-15 17:45] LABS: APPEARANCE, URINE HAZY (CLEAR); BACTERIA, URINE AUTO NEGATIVE (NEGATIVE); BILIRUBIN, URINE AUTO NEGATIVE (NEGATIVE); BLOOD, URINE BLOOD NEGATIVE (NEGATIVE); COLOR, URINE YELLOW (YELLOW); GLUCOSE, URINE (UA) AUTO NEGATIVE (NEGATIVE); KETONE, URINE AUTO NEGATIVE (NEGATIVE); LEUKOCYTE ESTERASE, URINE AUTO NEGATIVE (NEGATIVE); MUCUS, URINE SMALL (NEGATIVE); NITRITE, URINE AUTO NEGATIVE (NEGATIVE); PROTEIN, URINE AUTO NEGATIVE (NEGATIVE); RBC, URINE AUTO 4 /HPF (0-3); SPECIFIC GRAVITY URINE AUTO 1.021 (1.002-1.035); SQUAMOUS EPITHELIAL CELL UR AU 3 /HPF (0-6); UROBILINOGEN, URINE AUTO 0.2 mg/dL (0.0-2.0); WBC, URINE AUTO 1 /HPF (0-3)
== END ==
LOC: M SMT 17:01
PROVIDERS: ATTEND Nurse Practitioner Women's Health
DX: R31.29 Other microscopic hematuria (principal)

== ENCOUNTER → 2021-06-11 | Outpatient (CLI) | payer OTHER ==
[~2021-06-11] MED LIST changes: +ISOVUE-370 76% 100ML VIAL As Ordered ONE
--- NOTE | 2021-06-11 10:41 | REP ---
INDICATION: RENAL CYST,ADRENAL ADENOMA,MICROSCOPIC HEMATURIA. COMPARISON: None TECHNIQUE: Axial contrast-enhanced images from the lung bases to the pubic symphysis using 100 cc Isovue 370 intravenous contrast material. . This CT examination was performed using the following dose reduction techniques: Automated exposure control, adjustment of mA and/or kv according to the patient's size, and the use of iterative reconstruction technique. FINDINGS: The bilateral kidneys and urinary tract system are normal in all phases of evaluation. Specifically, the kidneys demonstrate symmetric enhancement and symmetric excretion to the collecting system. No evidence for hydroureteronephrosis, nephroureterolithiasis, significant cystic or mass lesion identified. Liver, spleen, pancreas, gallbladder, and adrenal glands are essentially normal. Benign hepatic cysts are identified measuring up to 1.5 cm. A 1.2 cm right adrenal adenoma noted. The enteric system including stomach, small, and large bowel appears normal. No evidence for obstruction or acute inflammatory process. Normal terminal ileum and appendix are identified in the right lower quadrant. Pelvis demonstrates normal bladder and age-appropriate uterus/adnexa. No ascites. No free air. No intraperitoneal or retroperitoneal adenopathy. Abdominal aorta and vasculature appear normal. Musculoskeletal structures are intact and without acute osseous abnormality. IMPRESSION: No acute abdominopelvic pathology appreciated. Urinary tract system is normal. Benign findings as described above. <Electronically signed by Chaim Bowman > 06/11/21 1038
== END ==
LOC: M RAD 09:14
PROVIDERS: ATTEND Nurse Practitioner Women's Health
DX: Q61.00 Congenital renal cyst, unspecified (principal); D35.00 Benign neoplasm of unspecified adrenal gland; R31.29 Other microscopic hematuria
CPT/HCPCS: 74178; Q9967

== ENCOUNTER → 2021-12-10 | Outpatient (CLI) | payer OTHER ==
[~2021-12-10] MED LIST changes: -ISOVUE-370 76% 100ML VIAL As Ordered ONE
[2021-12-10 10:02] LABS: BASO % 0.8 % (0.0-1.0); EOS # 0.2 10^3/uL (0.0-0.5); EOS % 4.9 % (0.0-3.0); HEMATOCRIT 43.4 % (36.0-47.0); HEMOGLOBIN 14.3 g/dl (12.0-15.5); LYMPH # 1.3 10^3/uL (1.5-5.0); LYMPH % 35.3 % (24.0-44.0); MEAN CORPUSCULAR HGB CONC 32.9 g/dl (32.0-36.5); MEAN CORPUSCULAR VOLUME 93.9 fl (80.0-96.0); MONO # 0.2 10^3/uL (0.0-0.8); MONO % 4.7 % (2.0-8.0); PLATELET COUNT, AUTOMATED 230 10^3/uL (150-450); RED BLOOD COUNT 4.62 10^6/uL (4.00-5.40); WHITE BLOOD COUNT 3.7 10^3/uL (4.0-10.0)
[2021-12-10 10:42] LABS: ALBUMIN 3.6 GM/DL (3.2-5.2); ALT/SGPT 20 U/L (12-78); BILIRUBIN,TOTAL 0.8 MG/DL (0.2-1.0); BLOOD UREA NITROGEN 13 MG/DL (7-18); CARBON DIOXIDE LEVEL 26 MEQ/L (21-32); CHLORIDE LEVEL 108 MEQ/L (98-107); CHOLESTEROL LEVEL 186 MG/DL (<200); CREATININE FOR GFR 0.78 MG/DL (0.55-1.30); FREE T4 0.98 NG/DL (0.76-1.46); GLOMERULAR FILTRATION RATE > 60.0 (>58); GLUCOSE, FASTING 95 MG/DL (70-100); HDL CHOLESTEROL 60 MG/DL (>40); LDL CHOLESTEROL 107 MG/DL (<100); NON-HDL-C 126 MG/DL; POTASSIUM SERUM 4.3 MEQ/L (3.5-5.1); SODIUM LEVEL 141 MEQ/L (136-145); THYROID STIMULATING HORMONE 0.826 uIU/ML (0.358-3.740); TOTAL PROTEIN 6.7 GM/DL (6.4-8.2); TRIGLYCERIDES LEVEL 97 MG/DL (<150)
== END ==
LOC: M LAB 09:37
PROVIDERS: ATTEND Family Medicine
DX: D72.819 Decreased white blood cell count, unspecified (principal)

== ENCOUNTER → 2022-01-12 | Outpatient (CLI) | payer OTHER | LOC: M WHC 15:52 | PROVIDERS: ATTEND Obstetrics & Gynecology | DX: Z12.31 Encounter for screening mammogram for malignant neoplasm of breast (principal); N63.42 Unspecified lump in left breast, subareolar; R92.8 Other abnormal and inconclusive findings on diagnostic imaging of breast ==

== ENCOUNTER → 2022-01-19 | Outpatient (CLI) | payer OTHER | LOC: M WHC 10:31 | PROVIDERS: ATTEND Obstetrics & Gynecology | DX: Z12.31 Encounter for screening mammogram for malignant neoplasm of breast (principal) ==

== ENCOUNTER → 2022-04-22 | Outpatient (REF) | payer OTHER | LOC: M LAB REF 12:51 | PROVIDERS: ATTEND Physician Assistant Medical | DX: J02.9 Acute pharyngitis, unspecified (principal) ==

== ENCOUNTER → 2022-07-18 | Outpatient (REF) | payer OTHER | LOC: M LAB REF 18:55 | PROVIDERS: ATTEND Physician Assistant Medical | DX: J06.9 Acute upper respiratory infection, unspecified (principal); R05.9 Cough, unspecified ==

== ENCOUNTER → 2023-01-17 | Outpatient (REF) | payer OTHER | LOC: M SFHCWAGY 17:26 | PROVIDERS: ATTEND Nurse Practitioner Family | DX: Z12.4 Encounter for screening for malignant neoplasm of cervix (principal); R87.610 Atypical squamous cells of undetermined significance on cytologic smear of cervix (ASC-US) ==

== ENCOUNTER → 2023-01-20 | Outpatient (CLI) | payer OTHER | LOC: M WHC 11:08 | PROVIDERS: ATTEND Nurse Practitioner Family | DX: Z12.31 Encounter for screening mammogram for malignant neoplasm of breast (principal) ==

== ENCOUNTER → 2023-02-01 | Outpatient (REF) | payer OTHER | LOC: M SFHCWAGY 18:37 | PROVIDERS: ATTEND Nurse Practitioner Family | DX: Z12.4 Encounter for screening for malignant neoplasm of cervix (principal); R87.615 Unsatisfactory cytologic smear of cervix ==

== ENCOUNTER → 2023-02-08 | Outpatient (CLI) | payer OTHER ==
[2023-02-08 10:39] LABS: APPEARANCE, URINE CLEAR (CLEAR); BACTERIA, URINE AUTO NEGATIVE (NEGATIVE); BILIRUBIN, URINE AUTO NEGATIVE (NEGATIVE); BLOOD, URINE BLOOD 2+ (NEGATIVE); COLOR, URINE YELLOW (YELLOW); GLUCOSE, URINE (UA) AUTO NEGATIVE (NEGATIVE); KETONE, URINE AUTO NEGATIVE (NEGATIVE); LEUKOCYTE ESTERASE, URINE AUTO NEGATIVE (NEGATIVE); MUCUS, URINE SMALL (NEGATIVE); NITRITE, URINE AUTO NEGATIVE (NEGATIVE); PROTEIN, URINE AUTO NEGATIVE (NEGATIVE); RBC, URINE AUTO 2 /HPF (0-3); SPECIFIC GRAVITY URINE AUTO 1.023 (1.002-1.035); SQUAMOUS EPITHELIAL CELL UR AU 1 /HPF (0-6); UROBILINOGEN, URINE AUTO 0.2 mg/dL (0.0-2.0); WBC, URINE AUTO 0 /HPF (0-3)
[2023-02-08 10:40] LABS: BASO # 0.1 10^3/uL (0.0-0.2); BASO % 1.3 % (0.0-1.0); EOS # 0.2 10^3/uL (0.0-0.5); EOS % 6.1 % (0.0-3.0); HEMATOCRIT 41.2 % (36.0-47.0); HEMOGLOBIN 13.8 g/dl (12.0-15.5); LYMPH # 1.3 10^3/uL (1.5-5.0); LYMPH % 33.1 % (24.0-44.0); MEAN CORPUSCULAR HEMOGLOBIN 31.7 pg (27.0-33.0); MEAN CORPUSCULAR HGB CONC 33.5 g/dl (32.0-36.5); MEAN CORPUSCULAR VOLUME 94.5 fl (80.0-96.0); MONO # 0.2 10^3/uL (0.0-0.8); NEUTROPHILS # 2.1 10^3/uL (1.5-8.5); NEUTROPHILS % 54.2 % (36.0-66.0); PLATELET COUNT, AUTOMATED 251 10^3/uL (150-450); RED BLOOD COUNT 4.36 10^6/uL (4.00-5.40); WHITE BLOOD COUNT 3.8 10^3/uL (4.0-10.0)
[2023-02-08 11:15] LABS: ALBUMIN 3.3 G/DL (3.2-5.2); ALKALINE PHOSPHATASE 60 U/L (46-116); ALT/SGPT 13 U/L (7.0-40); AST/SGOT 11 U/L (<34); BILIRUBIN,TOTAL 0.6 MG/DL (0.3-1.2); BLOOD UREA NITROGEN 13 MG/DL (9-23); CALCIUM LEVEL 8.8 MG/DL (8.5-10.1); CARBON DIOXIDE LEVEL 26 MMOL/L (20-31); CHLORIDE LEVEL 108 MMOL/L (98-107); CHOLESTEROL LEVEL 179 MG/DL (<200); CHOLESTEROL RISK RATIO 3.25 (<5); CREATININE FOR GFR 0.81 MG/DL (0.55-1.30); GLOMERULAR FILTRATION RATE > 60.0 (>58); GLUCOSE, FASTING 93 MG/DL (60-100); LDL CHOLESTEROL 108.4 MG/DL (<100); POTASSIUM SERUM 4.6 MMOL/L (3.5-5.1); SODIUM LEVEL 139 MMOL/L (136-145); TOTAL PROTEIN 6.4 G/DL (5.7-8.2); TRIGLYCERIDES LEVEL 78 MG/DL (<150)
[2023-02-08 11:16] LABS: THYROID STIMULATING HORMONE 0.807 uIU/ML (0.55-4.78)
[2023-02-08 11:17] LABS: FREE T4 0.97 NG/DL (0.89-1.76)
== END ==
LOC: M LAB 09:52
PROVIDERS: ATTEND Family Medicine
DX: D72.819 Decreased white blood cell count, unspecified (principal); R00.2 Palpitations; R10.30 Lower abdominal pain, unspecified; E78.5 Hyperlipidemia, unspecified; I10 Essential (primary) hypertension

== ENCOUNTER → 2023-05-01 | Outpatient (REF) | payer OTHER ==
[2023-05-01 21:14] LABS: APPEARANCE, URINE MANUAL CLEAR (CLEAR); COLOR, URINE MANUAL ORANGE (YELLOW)
[2023-05-01 21:15] LABS: BILIRUBIN, URINE MANUAL OBSCURED (NEGATIVE); GLUCOSE, URINE (UA) MANUAL OBSCURED mg/dL (NEGATIVE); KETONE, URINE MANUAL OBSCURED mg/dL (NEGATIVE); PROTEIN, URINE MANUAL OBSCURED mg/dL (NEGATIVE); UROBILINOGEN, URINE MANUAL OBSCURED mg/dl (NORMAL)
[2023-05-01 21:16] LABS: BLOOD URINE MANUAL OBSCURED (NEGATIVE); LEUKOCYTE ESTERASE, URINE MAN OBSCURED (NEGATIVE); NITRITE, URINE MANUAL OBSCURED (NEGATIVE)
[2023-05-01 21:23] LABS: SQUAMOUS EPITHELIAL CELL URINE SMALL AMOUNT /hpf (SMALL AMT); WBC, URINE 0-1 /hpf (0-3)
[2023-05-01 21:24] LABS: BACTERIA, URINE SMALL AMOUNT; HYALINE CAST, URINE NONE SEEN /lpf (0-1)
== END ==
LOC: M LAB REF 21:02
PROVIDERS: ATTEND Physician Assistant Medical
DX: N39.0 Urinary tract infection, site not specified (principal)

== ENCOUNTER → 2023-05-26 | Outpatient (REF) | payer OTHER | LOC: M LAB REF 16:10 | PROVIDERS: ATTEND Physician Assistant | DX: J02.9 Acute pharyngitis, unspecified (principal); B34.9 Viral infection, unspecified ==

== ENCOUNTER → 2023-07-24 | Outpatient (REF) | payer OTHER | LOC: M LAB REF 19:56 | PROVIDERS: ATTEND Physician Assistant | DX: B34.9 Viral infection, unspecified (principal) ==

== ENCOUNTER → 2023-12-05 | Outpatient (REF) | payer OTHER | LOC: M LAB REF 12:17 | PROVIDERS: ATTEND Physician Assistant Medical | DX: R50.9 Fever, unspecified (principal) ==

== ENCOUNTER → 2023-12-06 | Outpatient (REF) | payer OTHER | LOC: M LAB REF 16:09 | PROVIDERS: ATTEND Physician Assistant | DX: R30.0 Dysuria (principal) ==

== ENCOUNTER 2023-12-09 14:27 | Emergency (ER) | payer OTHER ==
[~2023-12-09] VITALS: Ht 157.5 cm; Wt 75.2 kg
[2023-12-09] MEDS ORDERED: PHEN-501 (14:37)
[2023-12-09] MEDS ORDERED: BENZ200C70 (14:37)
[2023-12-09] MEDS ORDERED: DOXY-323 (14:37)
[2023-12-09] MEDS ORDERED: VENTAER INH (17:29)
[2023-12-09] MEDS ORDERED: PRED20TA PO (17:29)
[2023-12-09 17:35] VITALS: BP 152/92; TEMP 98; O2SAT 97
== END 2023-12-09 17:51 | disposition home or self-care (01) ==
LOC: M ED 14:27
DX: J20.9 Acute bronchitis, unspecified (principal); R51.9 Headache, unspecified; Z87.42 Personal history of other diseases of the female genital tract; Z79.52 Long term (current) use of systemic steroids; Z79.899 Other long term (current) drug therapy; Z79.1 Long term (current) use of non-steroidal anti-inflammatories (NSAID)

== ENCOUNTER → 2024-02-09 | Outpatient (CLI) | payer OTHER ==
[~2024-02-09] MED LIST changes: +BENZ200C70; +DOXY-323; +PHEN-501; +PRED20TA PO; +VENTAER INH
[2024-02-09 10:02] LABS: APPEARANCE, URINE CLEAR (CLEAR); BACTERIA, URINE AUTO NEGATIVE (NEGATIVE); BILIRUBIN, URINE AUTO NEGATIVE (NEGATIVE); BLOOD, URINE BLOOD NEGATIVE (NEGATIVE); COLOR, URINE YELLOW (YELLOW); GLUCOSE, URINE (UA) AUTO NEGATIVE (NEGATIVE); KETONE, URINE AUTO NEGATIVE (NEGATIVE); LEUKOCYTE ESTERASE, URINE AUTO NEGATIVE (NEGATIVE); MUCUS, URINE SMALL (NEGATIVE); NITRITE, URINE AUTO NEGATIVE (NEGATIVE); PROTEIN, URINE AUTO NEGATIVE (NEGATIVE); RBC, URINE AUTO 3 /HPF (0-3); SPECIFIC GRAVITY URINE AUTO 1.023 (1.002-1.035); SQUAMOUS EPITHELIAL CELL UR AU 0 /HPF (0-6); UROBILINOGEN, URINE AUTO 0.2 mg/dL (0.0-2.0); WBC, URINE AUTO 1 /HPF (0-3)
[2024-02-09 10:22] LABS: BASO % 0.8 % (0.0-1.0); EOS # 0.1 10^3/uL (0.0-0.5); EOS % 2.5 % (0.0-3.0); HEMATOCRIT 43.1 % (36.0-47.0); HEMOGLOBIN 14.3 g/dl (12.0-15.5); LYMPH # 1.3 10^3/uL (1.5-5.0); LYMPH % 27.4 % (24.0-44.0); MEAN CORPUSCULAR HGB CONC 33.2 g/dl (32.0-36.5); MEAN CORPUSCULAR VOLUME 93.5 fl (80.0-96.0); MONO # 0.2 10^3/uL (0.0-0.8); MONO % 3.8 % (2.0-8.0); NEUTROPHILS # 3.1 10^3/uL (1.5-8.5); NEUTROPHILS % 65.3 % (36.0-66.0); PLATELET COUNT, AUTOMATED 258 10^3/uL (150-450); RED BLOOD COUNT 4.61 10^6/uL (4.00-5.40); WHITE BLOOD COUNT 4.7 10^3/uL (4.0-10.0)
[2024-02-09 10:52] LABS: ALBUMIN 3.6 G/DL (3.2-5.2); ALKALINE PHOSPHATASE 68 U/L (46-116); ALT/SGPT 21 U/L (7.0-40); AST/SGOT 17 U/L (<34); BILIRUBIN,TOTAL 0.7 MG/DL (0.3-1.2); BLOOD UREA NITROGEN 16 MG/DL (9-23); CARBON DIOXIDE LEVEL 28 MMOL/L (20-31); CHLORIDE LEVEL 105 MMOL/L (98-107); CHOLESTEROL LEVEL 189 MG/DL (<200); CHOLESTEROL RISK RATIO 3.44 (<5); CREATININE FOR GFR 0.68 MG/DL (0.55-1.30); GLOMERULAR FILTRATION RATE > 60.0 (>58); GLUCOSE, FASTING 92 MG/DL (60-100); HDL CHOLESTEROL 54.8 MG/DL (>40); LDL CHOLESTEROL 117.8 MG/DL (<100); NON-HDL-C 134.2 MG/DL; POTASSIUM SERUM 4.7 MMOL/L (3.5-5.1); SODIUM LEVEL 138 MMOL/L (136-145); TOTAL PROTEIN 6.6 G/DL (5.7-8.2); TRIGLYCERIDES LEVEL 82 MG/DL (<150)
[2024-02-09 10:55] LABS: THYROID STIMULATING HORMONE 1.044 uIU/ML (0.55-4.78)
== END ==
LOC: M LAB 08:23
PROVIDERS: ATTEND Family Medicine
DX: R00.2 Palpitations (principal); D72.819 Decreased white blood cell count, unspecified; R10.30 Lower abdominal pain, unspecified; E78.5 Hyperlipidemia, unspecified; I10 Essential (primary) hypertension

== ENCOUNTER → 2024-02-09 | Outpatient (CLI) | payer OTHER | LOC: M WHC 15:28 | PROVIDERS: ATTEND Nurse Practitioner Family | DX: Z12.31 Encounter for screening mammogram for malignant neoplasm of breast (principal) ==

== ENCOUNTER → 2024-02-09 | Outpatient (REF) | payer OTHER ==
[2024-02-15 13:11] LABS: HPV APTIMA Not Detected (Not Detected)
== END ==
LOC: M SFHCWAGY 10:33
PROVIDERS: ATTEND Nurse Practitioner Family
DX: Z12.4 Encounter for screening for malignant neoplasm of cervix (principal)
CPT/HCPCS: 87624; G0123

== ENCOUNTER → 2024-02-09 | Outpatient (CLI) | payer OTHER | LOC: M WHC 16:18 | PROVIDERS: ATTEND Nurse Practitioner Family | DX: Z12.31 Encounter for screening mammogram for malignant neoplasm of breast (principal) ==

== ENCOUNTER 2024-03-17 11:06 | Emergency (ER) | payer OTHER ==
[~2024-03-17] VITALS: Ht 157.5 cm; Wt 75.8 kg
[~2024-03-17 11:06] MED LIST changes: -DOXY-323; +DOXY-441
[2024-03-17] MEDS: ACETAMINOPHEN 500 MG TAB PO ONE (14:38)
[2024-03-17 15:32] VITALS: BP 123/84; TEMP 98; O2SAT 99
== END 2024-03-17 15:46 | disposition home or self-care (01) ==
LOC: M ED 11:06 → EDBD 11:06 → M ED 15:46
DX: R51.9 Headache, unspecified (principal); V49.40XA Driver injured in collision with unspecified motor vehicles in traffic accident, initial encounter; Z79.1 Long term (current) use of non-steroidal anti-inflammatories (NSAID); Z79.899 Other long term (current) drug therapy; Z88.1 Allergy status to other antibiotic agents; Z88.0 Allergy status to penicillin; Z88.2 Allergy status to sulfonamides; Z88.5 Allergy status to narcotic agent; Z88.8 Allergy status to other drugs, medicaments and biological substances; Y92.410 Unspecified street and highway as the place of occurrence of the external cause; Y93.89 Activity, other specified; Y99.9 Unspecified external cause status

== ENCOUNTER 2024-03-21 08:44 | Emergency (ER) | payer OTHER ==
[~2024-03-21] VITALS: Ht 157.5 cm; Wt 77.8 kg
[2024-03-21] MEDS ORDERED: ZYRT10TA12 PO (09:01)
[2024-03-21 13:50] VITALS: BP 161/88; TEMP 98; O2SAT 100
== END 2024-03-21 13:52 | disposition home or self-care (01) ==
LOC: M ED 08:44
DX: S06.0X0A Concussion without loss of consciousness, initial encounter (principal); V43.53XA Car driver injured in collision with pick-up truck in traffic accident, initial encounter; G43.909 Migraine, unspecified, not intractable, without status migrainosus; Y92.410 Unspecified street and highway as the place of occurrence of the external cause; Y93.89 Activity, other specified; Y99.9 Unspecified external cause status; Z87.42 Personal history of other diseases of the female genital tract; Z79.1 Long term (current) use of non-steroidal anti-inflammatories (NSAID); Z79.899 Other long term (current) drug therapy

== ENCOUNTER → 2024-06-20 | Outpatient (REF) | payer OTHER ==
[~2024-06-20] MED LIST changes: +ZYRT10TA12 PO
== END ==
LOC: M WUC 19:32
PROVIDERS: ATTEND Physician Assistant
DX: S39.012A Strain of muscle, fascia and tendon of lower back, initial encounter (principal); M43.16 Spondylolisthesis, lumbar region; M48.07 Spinal stenosis, lumbosacral region

== ENCOUNTER → 2024-06-20 | Outpatient (CLI) | payer OTHER | LOC: M WUC 15:06 | PROVIDERS: ATTEND Physician Assistant | DX: S39.012A Strain of muscle, fascia and tendon of lower back, initial encounter (principal); X58.XXXA Exposure to other specified factors, initial encounter; Y92.9 Unspecified place or not applicable; M47.816 Spondylosis without myelopathy or radiculopathy, lumbar region; M47.817 Spondylosis without myelopathy or radiculopathy, lumbosacral region ==

== ENCOUNTER → 2024-07-01 | Outpatient (REF) | payer OTHER | LOC: M LAB REF 19:12 | PROVIDERS: ATTEND Registered Nurse | DX: J06.9 Acute upper respiratory infection, unspecified (principal) ==

== ENCOUNTER → 2024-12-20 | Outpatient (CLI) | payer OTHER | LOC: M RAD 14:42 | PROVIDERS: ATTEND Physician Assistant | DX: M25.551 Pain in right hip (principal); M25.552 Pain in left hip ==

== ENCOUNTER → 2024-12-26 | Outpatient (REF) | payer OTHER | LOC: M LAB REF 17:28 | PROVIDERS: ATTEND Physician Assistant | DX: J02.9 Acute pharyngitis, unspecified (principal) ==

== ENCOUNTER → 2025-04-23 | Outpatient (CLI) | payer OTHER ==
[~2025-04-23] MED LIST changes: -IBUP-1022 PO; +IBUP600T42 PO
== END ==
LOC: M WHC 11:48
PROVIDERS: ATTEND Nurse Practitioner Family
DX: Z12.31 Encounter for screening mammogram for malignant neoplasm of breast (principal)

== ENCOUNTER → 2025-05-16 | Outpatient (REF) | payer OTHER | LOC: M LAB REF 18:32 | DX: N39.0 Urinary tract infection, site not specified (principal) ==